=== PATIENT | female | born 1980 | race Caucasian/White ===

== ENCOUNTER → 2021-06-22 16:00 | Outpatient (BNVA) | payer OTHER, SELFPAY | PROVIDERS: Family Provider Nurse Practitioner Family; PCP Registered Nurse; Visit Provider Nurse Practitioner Women's Health | DX: Z12.4 Encounter for screening for malignant neoplasm of cervix (principal); Z30.431 Encounter for routine checking of intrauterine contraceptive device; R10.2 Pelvic and perineal pain | CPT/HCPCS: 88175 ==

== ENCOUNTER → 2021-07-03 13:08 | Outpatient (BNVA) | payer OTHER, SELFPAY | PROVIDERS: Family Provider Nurse Practitioner Family; PCP Registered Nurse; Visit Provider Nurse Practitioner Women's Health | DX: R10.2 Pelvic and perineal pain (principal); N83.201 Unspecified ovarian cyst, right side | CPT/HCPCS: 76830 ==

== ENCOUNTER → 2021-07-06 08:22 | Outpatient (BNVA) | payer OTHER, SELFPAY | PROVIDERS: Family Provider Nurse Practitioner Family; PCP Registered Nurse; Visit Provider Obstetrics & Gynecology | DX: R87.612 Low grade squamous intraepithelial lesion on cytologic smear of cervix (LGSIL) (principal); B97.7 Papillomavirus as the cause of diseases classified elsewhere | CPT/HCPCS: 81025; 88305 ==

== ENCOUNTER → 2022-01-04 14:45 | Outpatient (BNVA) | payer OTHER, SELFPAY | PROVIDERS: Family Provider Nurse Practitioner Family; PCP Registered Nurse; Visit Provider Obstetrics & Gynecology | DX: Z01.419 Encounter for gynecological examination (general) (routine) without abnormal findings (principal) | CPT/HCPCS: 87624 ==

== ENCOUNTER → 2022-06-27 08:25 | Outpatient (BNVA) | payer OTHER, SELFPAY | PROVIDERS: Family Provider Nurse Practitioner Family; PCP Registered Nurse; Visit Provider Obstetrics & Gynecology | DX: R87.612 Low grade squamous intraepithelial lesion on cytologic smear of cervix (LGSIL) (principal); Z12.39 Encounter for other screening for malignant neoplasm of breast | CPT/HCPCS: 87624 ==

== ENCOUNTER 2022-07-08 14:50 | Outpatient (CLI) | payer OTHER, SELFPAY ==
--- NOTE | 2022-07-08 14:55 | MM_ITS ---
WS: [id number] BILATERAL 3D TOMOSYNTHESIS DIGITAL SCREENING MAMMOGRAPHY WITH CAD CLINICAL INFORMATION: Z12.39 - Encounter for other screening for malignant neop... HISTORY: Screening mammogram. No current complaints. COMPARISON: None. TECHNIQUE: Bilateral CC and MLO views. FINDINGS: Scattered fibroglandular densities bilaterally. No suspicious focal mass, asymmetry, calcifications, or architectural distortion. No evidence of malignancy. A few incidental punctate calcifications RIGH T breast. Dense breast tissue upper outer breasts bilaterally. MM/[place] [id number] IMPRESSION: BI-RADS: 2-Benign FOLLOW UP: 1 Year Follow-up Recommend return to annual screening mammography.
== END 2022-07-08 14:51 | disposition home or self-care (01) ==
LOC: RAD 14:50
PROVIDERS: PCP Registered Nurse; Visit Provider Obstetrics & Gynecology
DX: Z12.31 Encounter for screening mammogram for malignant neoplasm of breast (principal)
CPT/HCPCS: 77063; 77067

== ENCOUNTER → 2023-06-30 16:00 | Outpatient (BNVA) | payer OTHER, SELFPAY | PROVIDERS: Family Provider Nurse Practitioner Family; PCP Registered Nurse; Visit Provider Nurse Practitioner Women's Health | DX: Z30.9 Encounter for contraceptive management, unspecified (principal); Z01.419 Encounter for gynecological examination (general) (routine) without abnormal findings | CPT/HCPCS: 87624 ==

== ENCOUNTER → 2023-08-01 15:49 | Outpatient (BNVA) | payer OTHER, SELFPAY | PROVIDERS: Family Provider Nurse Practitioner Family; PCP Family Medicine; Visit Provider Nurse Practitioner Family | DX: N39.0 Urinary tract infection, site not specified (principal); N30.01 Acute cystitis with hematuria | CPT/HCPCS: 81000; 87077; 87086; 87184 ==

== ENCOUNTER → 2023-08-27 13:00 | Outpatient (BNVA) | payer OTHER, SELFPAY | PROVIDERS: Family Provider Nurse Practitioner Family; PCP Family Medicine; Visit Provider Obstetrics & Gynecology | DX: Z30.9 Encounter for contraceptive management, unspecified (principal) | CPT/HCPCS: 81025 ==

== ENCOUNTER 2023-09-15 09:45 | Emergency (ER) | payer OTHER, MEDICAID, SELFPAY ==
[2023-09-15 10:27] VITALS: BP 152/85; PULSE 56; RESP 18; TEMP 36.3; O2SAT 98; BMI 30.1
--- NOTE | 2023-09-15 10:33 | ECG_ITS ---
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 Measurements Intervals Mobile Rate: 61 P: 0 CT: 0 QRS: 68 QRSD: 88 T: 54 QT: 414 QTc: 420 Interpretive Statements Sinus rhythm No previous ECG available for comparison Electronically Signed On 09-15-2023 15:56:08 PLASTERING SUPERVISOR by Nikhil Soliz M.D. [id number]
--- NOTE | 2023-09-15 10:55 | XR_ITS ---
WS: [id number] Exam: XR chest 1V portable [id number] Date/Time of Exam: 09/15/2023 10:55 AM Reason For Exam: chest pain No prior exams. Findings: The lungs are clear and fully expanded. Costophrenic angles are sharp. No infiltrates. Bronchovascula r relief appears normal. Cardiac silhouette is unremarkable. Bony elements are intact. IMPRESSION: Unremarkable chest radiograph.
[2023-09-15 12:09] LABS: Basophils % 0.3 %; Eosinophils % 0.1 %; Hematocrit 43.3 % (36-47); Lymphocytes # 1.3 10^3/uL (0.8-4.8); Lymphocytes % 9.2 %; Mean Corpuscular HGB Conc 33.3 g/dL (30-55); Mean Corpuscular Hemoglobin 30.8 pg (27-33); Mean Corpuscular Volume 92.5 fl (85-98); Mean Platelet Volume 8.4 fL (7.4-10.4); Monocytes # 0.6 10^3/uL (0.2-0.9); Neutrophils # 12.13 10^3/uL (1.8-7.7); Neutrophils % 85.8 %; Nucleated Red Blood Cells % 0 %; Platelet Count 306 10^3/cmm (157-399); Red Blood Count 4.68 10^6/uL (3.85-5.65); Red Cell Distribution Width 12.9 % (12.1-15.1); White Blood Count 14.14 10^3/uL (3.29-11.43)
[2023-09-15 12:37] LABS: Alanine Aminotransferase 10 U/L (0-33); Albumin Level 4.6 g/dL (3.5-5.2); Alkaline Phosphatase 71 U/L (35-105); Anion Gap 11.4 (5-19); Aspartate Amino Transferase 10 U/L (0-32); Blood Urea Nitrogen 11 mg/dL (6-20); Carbon Dioxide 26 mmol/L (22-29); Chloride 104 mmol/L (98-107); Globulin 2.6 g/dL (1.3-4.6); Glomerular Filtration Rate 92.2 mL/min (90-130); Glucose 111 mg/dL (65-115); Osmolality Calculated 284 mOsm/kg (285-295); Potassium 4.4 mmol/L (3.5-5.1); Sodium 137 mmol/L (136-145); Total Bilirubin 0.4 mg/dL (0.15-1.2); Total Protein 7.2 g/dL (6.6-8.7)
[2023-09-15 12:38] LABS: Troponin(5th) Baseline < 6 ng/L (0-10)
--- NOTE | 2023-09-15 12:55 | ECG_ITS ---
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 Measurements Intervals [place] Rate: 61 P: 9 HI: 140 QRS: 3 QRSD: 96 T: 12 QT: 436 QTc: 442 Interpretive Statements SINUS RHYTHM WITH SINUS ARRHYTHMIA Compared to ECG 09/15/2023 10:17:43 Atrial fibrillation no longer present Electronically Signed On 09-15-2023 16:00:06 STUDIO ARTIST by Nikhil Soliz M.D. [id number]
--- NOTE | 2023-09-15 13:14 | US_ITS ---
WS: [id number] ULTRASOUND ABDOMEN LIMITED CLINICAL INFORMATION: ruq COMPARISON: None. FINDINGS: Liver Size: Upper limits of normal. Craniocaudal length: 16.4 cm. Echogenicity: Normal. Surface nodularity: None. Mass (size and location): None. Bile ducts Intrahepatic ducts: Normal. Common bile duct diameter: 0.6 cm. Gallbladder Cholelithiasis and sludge gallstones: Present Gallbladder sludge: Present Gallbladder wall thickening: None. Pericholecystic fluid: None. Sonographic Fierro sign: Absent. Pancreas Normal as visualized. Right kidney: Normal. Hydronephrosis: None. Size: 10.5 cm x 5.7 cm x 5.2 cm. Abdominal aorta and IVC Visualized portions are normal. Ascites: None. IMPRESSION: 1. Shadowing cholelithiasis and gallbladder sludge. No gallbladder wall thickening or pericholecysti c fluid. 2. Prominent common bile duct measuring 6.2 mm. This can be followed up with MRCP. 3. Mild hepatomegaly. 4. No other suspicious findings.
--- NOTE | 2023-09-15 13:19 | ED_ITS ---
HPI - Chest Pain 2 General: Chief Complaint: Chest Pain Stated Complaint: side and back pain Time Seen by Provider: 09/15/23 12:58 Source: patient Mode of arrival: ambulatory Limitations: no limitations History of Present Illness: 43-year-old female states she woke up th is morning having some chest pressure states she has been having epigastric abdominal pain along with right upper quadrant pain states it felt like reflux radiating to her chest states she did take some Tums continue to have some pain has had some nausea no vomiting. Associated symptoms: Reports abdominal pain; Deny dyspnea, fever(s), nausea or vomiting Review of Systems 2 Const: Denies: fever(s), chills, body aches or change in appetite ENMT: Denies: throat pain or dental pain Card: Reports: chest pain Resp: Denies: dyspnea GI: Reports: abdominal pain; Denies: nausea, vomiting or diarrhea : Denies: dysuria Musc: Denies: neck pain or back pain Skin/Breast: Denies: rash Neuro: Denies: headache(s) PFSH ED 2 PFSH: Medical History Contraceptive management No pertinent past medical history neg dx- htn, dm, thyroid, dvt/pe PCP: Chyna vail Surgical History H/O dilation and curettage (~2006) SAB Family History Mother Heart disease Hypertension Family history of thyroid problem Ovarian cancer Grandmother Heart disease Paternal grandmother Ovarian cancer Maternal grandmother Grandfather Diabetes Paternal grandfather Denies family history of Colon cancer Breast cancer Uterine cancer Social History Smoking and tobacco/nicotine status: current every day tobacco/nicotine user (1 PPD) Physical Exam 2 Const: COMMON NORMALS: no acute distress, patient oriented x3 and healthy appearing HENMT: COMMON NORMALS: normocephalic and atraumatic HEAD & SCALP: n ormocephalic and atraumatic Eye: COMMON NORMALS: Equal, round and reactive pupils present and EOMs intact bilaterally PUPIL: Yes Equal, round and reactive pupils present Neck/C-Spine: COMMON NORMALS: full ROM and supple Chest: COMMONS NORMALS: normal inspection of the chest Resp: COMMON NORMALS: normal respiratory effort, No retractions, No use of accessory muscles and clear to auscultation bilaterally AUSCULTATION: clear to auscultation bilaterally Cardio: COMMON NORMALS: regular rate, regular rhythm and No murmurs present (Cardio) RATE: regular rate RHYTHM: regular rhythm GI: COMMON NORMALS: Normal to inspection, nondistended, normoactive bowel sounds present, Soft to palpation and no masses PALPATION: Yes Soft to palpation OTHER: epigastric tenderness Extremity: COMMON NORMALS: normal to inspection and full ROM Neuro: COMMON NORMALS: patient oriented x3, moves all extremities and no focal motor deficits Psych: COMMON NORMALS: mental status grossly normal, Normal thought process present and cooperative THOUGHT PROCESS: Normal thought process present Skin: COMMON NORMALS: no rashes or lesions noted and no wounds GENERAL SKIN EXAM: no rashes or lesions noted Course 2 Vital Signs: Vital signs: Vital Signs Temperature 97.3 F L 09/15/23 10:27 Pulse Rate 58 L 09/15/23 13:31 Respiratory Rate 15 09/15/23 13:48 Blood Pressure 121/70 09/15/23 13:31 Pulse Oximetry 98 09/15/23 13:31 Oxygen Delivery Me thod Room Air 09/15/23 13:31 MDM - Chest Pain Medical Decision Making Patient presents for epigastric abdominal pain ultrasound does show gallstones she has no signs of acute cholecystitis her blood work including lipase liver enzymes are all normal pains improved her exam at discharge benign we will start her on pain meds along with nausea medicine and antibiotics will get her follow- up with surgery as well she is return if worsening she understands agrees to plan. Medical Records I reviewed the patient's medical records. Lab Data I reviewed the patient's lab results. 09/15/23 12:02 09/15/23 12:02 Laboratory Results WBC 14.14 10^3/uL (3.29-11.43) H 09/15/23 12:02 RBC 4.68 10^6/uL (3.85-5.65) 09/15/23 12:02 Hgb 14.40 g/dL (11.27-16.99) 09/15/23 12:02 Hct 43.3 % (36-47) 09/15/23 12:02 MCV 92.5 fl (85-98) 09/15/23 12:02 MCH 30.8 pg (27-33) 09/15/23 12:02 MCHC 33.3 g/dL (30-55) 09/15/23 12:02 RDW 12.9 % (12.1-15.1) 09/15/23 12:02 Plt Count 306 10^3/cmm (157-399) 09/15/23 12:02 MPV 8.4 fL (7.4-10.4) 09/15/23 12:02 Neut % (Auto) 85.8 % 09/15/23 12:02 Lymph % (Auto) 9.2 % 09/15/23 12:02 [place] % (Auto) 4.0 % 09/15/23 12:02 Eos % (Auto) 0.1 % 09/15/23 12:02 Baso % (Auto) 0.3 % 09/15/23 12:02 Neut # (Auto) 12.13 10^3/uL (1.8-7.7) H 09/15/23 12:02 Lymph # (Auto) 1.3 10^3/uL (0.8-4.8) 09/15/23 12:02 [place] # (Auto) 0.6 10^3/uL (0.2-0.9) 09/15/23 12:02 Eos # (Auto) 0.0 10^3/uL (0.0-0.8) 09/15/23 12:02 Baso # (Auto) 0.0 10^3/uL (0.0-0.1) 09/15/23 12:02 Nucleated RBC % (auto) 0 % 09/15/23 12:02 Nucleated RBCs # 0.0 /100WBC 09/15/23 12:02 Sodium 137 mmol/L (136-145) 09/15/23 12:02 Potassium 4.4 mmol/L (3.5-5.1) 09/15/23 12:02 Chloride 104 mmol/L (98-107) 09/15/23 12:02 Carbon Dioxide 26 mmol/L (22-29) 09/15/23 12:02 Anion Gap 11.4 (5-19) 09/15/23 12:02 BUN 11 mg/dL (6-20) 09/15/23 12:02 Creatinine 0.7 mg/dL (0.5-0.9) 09/15/23 12:02 GFR Calculation 92.2 mL/min (90-130) 09/15/23 12:02 Glucose 111 mg/dL (65-115) 09/15/23 12:02 Calculated Osmolality 284 mOsm/kg (285-295) L 09/15/23 12:02 Calcium 10.0 mg/dL (8.5-10.5) 09/15/23 12:02 Total Bilirubin 0.4 mg/dL (0.15-1.2) 09/15/23 12:02 AST 10 U/L (0-32) 09/15/23 12:02 ALT 10 U/L (0-33) 09/15/23 12:02 Alkaline Phosphatase 71 U/L (35-105) 09/15/23 12:02 Troponin T Baseline < 6 ng/L (0-10) 09/15/23 12:02 Troponin T 120 Minute 6.00 ng/L (0-10) 09/15/23 14:20 Delta Troponin T [id number] ABS# (0-10) 09/15/23 14:20 Total Protein 7.2 g/dL (6.6-8.7) 09/15/23 12:02 Albumin 4.6 g/dL (3.5-5.2) 09/15/23 12:02 Globulin 2.6 g/dL (1.3-4.6) 09/15/23 12:02 Lipase 20 U/L (13-60) 09/15/23 14:20 HCG, Qual Negative (Negative) 09/15/23 12:02 All radiology interpretation(s) finalized by discharge EKG Data EKG 1: I personally reviewed and interpreted this EKG as follows: EKG interpretation date: 09/15/23 EKG interpretation time: 14:07 Interpretation: nsr h [address] or t wave abnormalities qrs 96 qtc 440 Discharge Plan Discharge Patient Disposition: Home Clinical Impression: Biliary colic Cholelithiasis Qualifiers: Cholelithiasis location: gallbladder Cholecystitis presence: without cholecystitis Biliary obstruction: without biliary obstruction Qualified Code(s): K80.20 - Calculus of gallbladder without cholecystitis without obstruction Condition: Stable Prescriptions: New hydrocodone-acetaminophen 5-325 mg tablet 1 tab PO Q6H PRN (Reason: pain) Qty: 14 0RF pantoprazole [Protonix] 40 mg tablet,delayed release (DR/EC) 40 mg PO DAILY Qty: 60 0RF ondansetron 4 mg tablet,disintegrating 4 mg PO Q6H PRN (Reason: nausea and vomiting) Qty: 14 0RF amoxicillin-pot clavulanate [Augmentin] 500-125 mg tablet 1 tab PO BID Qty: 14 0RF No Action alprazolam [Xanax] 0.5 mg tablet 0.5 mg PO BID PRN (Reason: Anxiety) propranolol 10 mg tablet 10 mg PO BID PRN (Reason: Anxiety) Mirena 20 mcg/24 hours (5 yrs) 52 mg intrauterine device See Rx Instructions .ROUTE .COMPLEX Rx Instructions: intrauterinely trazodone 100 mg tablet 100 mg PO BEDTIME PRN (Reason: Sleep) Discharge Orders: Discharge ED (Routine); Ordered 09/15/23 Ordered By: Natalia Tay Referrals: Vamsi Hansen DO [Physician] - 1-3 days Reena Vail DO [Primary Care Provider] - Discharge Diet: Advance as tolerated Discharge Activity: Resume usual activity Patient Instructions: Gallstones (ED), Abdominal Pain (ED), Opioid Safety Coding Level of Care Code ED Tribal Delegate for Kody Griffith
[2023-09-15 13:31] VITALS: BP 121/70; PULSE 58; O2SAT 98
[2023-09-15 13:48] VITALS: RESP 15
[2023-09-15] MEDS: ondansetron 2 mg/ML SDV 2 mL 4 MG IVP (13:48)
[2023-09-15] MEDS: morphine 4 mg/mL SDV 1 mL IVP (13:48)
[2023-09-15 14:14] LABS: HCG, Serum Qual Negative (Negative)
[2023-09-15 14:55] LABS: Troponin 5 2HR Delta 0.00001 ABS# (0-10)
[2023-09-15 14:57] LABS: Lipase 20 U/L (13-60)
[2023-09-15 15:28] VITALS: PULSE 74; O2SAT 92
--- NOTE | 2023-09-15 18:06 | DCPLANNER ---
Message was sent to dr. estes office on 09/15/23 at 3134. [facility] to contact patient.
== END 2023-09-15 15:35 | disposition home or self-care (01) ==
PROVIDERS: Physician Assistant; Emergency Provider Emergency Medicine; PCP Family Medicine
DX: K80.20 Calculus of gallbladder without cholecystitis without obstruction (principal); F17.210 Nicotine dependence, cigarettes, uncomplicated
CPT/HCPCS: 36415; 71045; 76705; 80053; 83690; 84484; 84703; 85025; 93005; 96374; 96375; 99285; J2270; J2405

== ENCOUNTER 2023-10-06 14:06 | Emergency (ER) | payer OTHER, MEDICAID, SELFPAY ==
[2023-10-06 14:22] VITALS: BP 141/88; PULSE 57; RESP 18; TEMP 36.5; O2SAT 100; BMI 31.6
[2023-10-06 15:22] LABS: Basophils % 0.2 %; Eosinophils % 0.1 %; Hematocrit 44.1 % (36-47); Lymphocytes # 1.4 10^3/uL (0.8-4.8); Lymphocytes % 10.7 %; Mean Corpuscular HGB Conc 32.4 g/dL (30-55); Mean Corpuscular Hemoglobin 30.3 pg (27-33); Mean Corpuscular Volume 93.4 fl (85-98); Mean Platelet Volume 8.7 fL (7.4-10.4); Monocytes # 0.5 10^3/uL (0.2-0.9); Monocytes % 3.8 %; Neutrophils # 11.34 10^3/uL (1.8-7.7); Neutrophils % 84.9 %; Nucleated Red Blood Cells % 0 %; Platelet Count 312 10^3/cmm (157-399); Red Blood Count 4.72 10^6/uL (3.85-5.65); White Blood Count 13.37 10^3/uL (3.29-11.43)
[2023-10-06] MEDS: ondansetron 2 mg/ML SDV 2 mL 4 MG IVP (15:24)
[2023-10-06] MEDS: morphine 4 mg/mL SDV 1 mL IVP (15:25)
--- NOTE | 2023-10-06 15:34 | USR_ITS ---
PROCEDURE INFORMATION: Exam: US Abdomen, Limited; Right Upper Quadrant Exam date and time: 10/06/2023 3:50 PM Age: 43 years old Clinical indication: Abdominal pain; Acute; Additional info: Ruq pain, nausea, HX of stones/sludge TECHNIQUE: Imaging protocol: Real time ultrasound of the abdomen with image documentation. Limited exam focused on the right upper quadrant. COMPARISON: US gall bladder [id number] 09/15/2023 1:22 PM FINDINGS: Liver: Normal. No masses. Gallbladder: Mobile bile gallstones are seen long with some sludge. No wall thickening or edema. Fierro's sign reported negative. Biliary ducts: Normal. No stones. No dilation. Pancreas: Visualized pancreas is unremarkable. Right kidney: Normal. No mass. No hydronephrosis. Aorta: Normal where visualized. Inferior vena cava: Normal where visualized. US/US gall bladder [id number] IMPRESSION: Cholelithiasis with no sonographic evidence for acute cholecystitis.
--- NOTE | 2023-10-06 15:34 | ED_ITS ---
HPI - Abdominal Pain 2 General: Chief Complaint: Abdominal Pain Stated Complaint: abd pain Time Seen by Provider: 10/06/23 14:52 History of Present Illness: 43-year-old female presents emergency de partment with complaint of epigastric abdominal pain with nausea and heartburn with reflux. She reports it started as she was waking up this morning. It was already present by the time she got out of bed. She has a history of cholelithiasis and biliary sludge and has a scheduled cholecystectomy in November 2023. Patient reports she also is taking a proton pump inhibitor as the cause for her epigastric abdominal pain was unclear at the time of previous ER visit for epigastric abdominal pain. Patient reports she did have a few fatty foods yesterday for s [employer]. She denies using alcohol. Pain rated as severe upon arrival. It does radiate into her back. She took a hydrocodone 10 mg tablet which did not alleviate her pain. At that point in time she decided to come into the ER for evaluation. Associated Symptoms: Denies chills, diarrhea, dysuria, fever(s) and syncope Review of Systems 2 General: Reports: 10 or more systems reviewed and unremarkable except in HPI and below Const: Denies: fever(s), chills or body aches Eyes: Denies: change in vision ENMT: Denies: throat pain Card: Denies: chest pain, edema or syncope Resp: Denies: dyspnea or productive cough GI: Denies: diarrhea : Denies: flank pain, dysuria or urinary frequency Musc: Denies: neck pain, extremity pain or extremity swelling Skin/Breast: Denies: rash or erythema Neuro: Denies: headache(s), numbness in extremities, weakness in extremities, lack of coordination or difficulty walking PFSH ED 2 PFSH: Medical History No pertinent past medical history neg dx- htn, dm, thyroid, dvt/pe PCP: Chyna vail Contraceptive management Surgical History H/O dilation and curettage (~2006) SAB Family History Mother Heart disease Hypertension Family history of thyroid problem Ovarian cancer Grandmother Heart disease Paternal grandmother Ovarian cancer Maternal grandmother Grandfather Diabetes Paternal grandfather Denies family history of Colon cancer Breast cancer Uterine cancer Social History Smoking and tobacco/nicotine status: current every day tobacco/nicotine user (1 PPD) Physical Exam 2 Const: COMMON NORMALS: no limitations, alert and well nourished EXAM LIMITATIONS: no altered mental status HENMT: COMMON NORMALS: normocephalic, atraumatic and external ears normal H EAD & SCALP: normocephalic and atraumatic EXTERNAL EAR: Yes external ears normal MOUTH: no muffled voice Eye: COMMON NORMALS: EOMs intact bilaterally, conjunctivae normal and no scleral icterus CONJUNCTIVA: Yes conjunctivae normal Neck/C-Spine: GENERAL: Yes normal visual inspection and Yes trachea midline Resp: COMMON NORMALS: normal respiratory effort, No use of accessory muscles and clear to auscultation bilaterally AUSCULTATION: clear to auscultation bilaterally Cardio: COMMON NORMALS: regular rate and regular rhythm RATE: regular rate RHYTHM: regular rhythm GI: COMMON NORMALS: Soft to palpation INSPECTION: Yes normal to inspection PALPATION: Yes Soft to palpation, Yes Tenderness to palpation present (GI) Details: RUQ and Yes Guarding due to palpation present (GI) in the RUQ Extremity: COMMON NORMALS: normal to inspection Neuro: COMMON NORMALS: moves all extremities, no focal motor deficits and no sensory deficits noted SENSORIUM/ORIENTATION: Yes alert SPEECH: speech normal Psych: COMMON NORMALS: mental status grossly normal, Normal thought process present, cooperative, normal affect and speech normal SPEECH: Yes normal speech THOUGHT PROCESS: Normal thought process present Skin: COMMON NORMALS: no rashes or lesions noted, turgor normal and no jaundice GENERAL SKIN EXAM: no rashes or lesions noted and turgor normal Course 2 Vital Signs: Vital signs: Vital Signs Temperature 97.7 F 10/06/23 14:22 Pulse Rate 57 L 10/06/23 14:22 Respiratory Rate 18 10/06/23 14:22 Blood Pressure 141/88 10/06/23 14:22 Pulse Oximetry 100 10/06/23 14:22 Oxygen Delivery Me thod Room Air 10/06/23 14:22 MDM - Abdominal Pain Medical Decision Making Differential diagnosis includes biliary colic, cholecystitis, pancreatitis, hepatitis, gastritis, peptic ulcer disease, obstipation, constipation, GERD, colitis, diverticulitis, other. Point of maximal tenderness is in the right upper quadrant underneath the rib cage. Will proceed with CBC, CMP, lipase, right upper quadrant ultrasound. Patient was given Zofran, morphine with significant improvement. Will add Toradol for suspected biliary colic. Urine test is negative. 1415 Patient's white blood cell count is elevated. LFTs are normal. Lipase is normal. test is negative. radiographic technologist discussed her findings with me. The official read is pending. Her wet read suggest mobile gallstones and sludge. No gallbladder wall thickness or pericholecystic fluid. The common bile duct is measuring 1 cm. This is up from 6.2 on her previous study. However, technologist reports unable to see any signs of obstruction after moving the patient and observing the common bile duct. I discussed this case with Dr. Culver. The patient's discomfort has resolved and there are no abnormal LFTs, therefore our plan is to discharge the patient with urgent follow-up to his clinic this week. He would like to place her on Augmentin. I will reiterate very low-fat diet and return precautions. He reports he plans to repeat labs and probable MRCP at follow-up. Lab Data 10/06/23 15:03 10/06/23 15:03 Labs/Radiology: Radiology Impressions Gallbladder Ultrasound 10/06/23 15:34 IMPRESSION: Cholelithiasis with no sonographic evidence for acute cholecystitis. Laboratory Results WBC 13.37 10^3/uL (3.29-11.43) H 10/06/23 15:03 RBC 4.72 10^6/uL (3.85-5.65) 10/06/23 15:03 Hgb 14.30 g/dL (11.27-16.99) 10/06/23 15:03 Hct 44.1 % (36-47) 10/06/23 15:03 MCV 93.4 fl (85-98) 10/06/23 15:03 MCH 30.3 pg (27-33) 10/06/23 15:03 MCHC 32.4 g/dL (30-55) 10/06/23 15:03 RDW 13.0 % (12.1-15.1) 10/06/23 15:03 Plt Count 312 10^3/cmm (157-399) 10/06/23 15:03 MPV 8.7 fL (7.4-10.4) 10/06/23 15:03 Neut % (Auto) 84.9 % 10/06/23 15:03 Lymph % (Auto) 10.7 % 10/06/23 15:03 [place] % (Auto) 3.8 % 10/06/23 15:03 Eos % (Auto) 0.1 % 10/06/23 15:03 Baso % (Auto) 0.2 % 10/06/23 15:03 Neut # (Auto) 11.34 10^3/uL (1.8-7.7) H 10/06/23 15:03 Lymph # (Auto) 1.4 10^3/uL (0.8-4.8) 10/06/23 15:03 [place] # (Auto) 0.5 10^3/uL (0.2-0.9) 10/06/23 15:03 Eos # (Auto) 0.0 10^3/uL (0.0-0.8) 10/06/23 15:03 Baso # (Auto) 0.0 10^3/uL (0.0-0.1) 10/06/23 15:03 Nucleated RBC % (auto) 0 % 10/06/23 15:03 Nucleated RBCs # 0.0 /100WBC 10/06/23 15:03 Sodium 140 mmol/L (136-145) 10/06/23 15:03 Potassium 4.2 mmol/L (3.5-5.1) 10/06/23 15:03 Chloride 108 mmol/L (98-107) H 10/06/23 15:03 Carbon Dioxide 24 mmol/L (22-29) 10/06/23 15:03 Anion Gap 12.2 (5-19) 10/06/23 15:03 BUN 10 mg/dL (6-20) 10/06/23 15:03 Creatinine 0.8 mg/dL (0.5-0.9) 10/06/23 15:03 GFR Calculation 79.0 mL/min (90-130) L 10/06/23 15:03 Glucose 108 mg/dL (65-115) 10/06/23 15:03 Calculated Osmolality 290 mOsm/kg (285-295) 10/06/23 15:03 Calcium 9.5 mg/dL (8.5-10.5) 10/06/23 15:03 Total Bilirubin 0.2 mg/dL (0.15-1.2) 10/06/23 15:03 AST 12 U/L (0-32) 10/06/23 15:03 ALT 12 U/L (0-33) 10/06/23 15:03 Alkaline Phosphatase 70 U/L (35-105) 10/06/23 15:03 Total Protein 6.9 g/dL (6.6-8.7) 10/06/23 15:03 Albumin 4.3 g/dL (3.5-5.2) 10/06/23 15:03 Globulin 2.6 g/dL (1.3-4.6) 10/06/23 15:03 Lipase 17 U/L (13-60) 10/06/23 15:03 HCG, Qual Negative (Negative) 10/06/23 16:08 Urine Color Yellow (Yellow) 10/06/23 16:08 Urine Appearance Clear (CLEAR) 10/06/23 16:08 Urine pH 5 (5-7) 10/06/23 16:08 Ur Specific [place] 1.025 (1.005-1.030) 10/06/23 16:08 Urine Protein Neg (Negative) 10/06/23 16:08 Urine Glucose (UA) Norm (Normal) 10/06/23 16:08 Urine Ketones 1+ (Negative) H 10/06/23 16:08 Urine Blood Trace (Negative) H 10/06/23 16:08 Urine Nitrate Negative (Negative) 10/06/23 16:08 Urine Bilirubin Neg (Negative) 10/06/23 16:08 Urine Urobilinogen Norm mg/dL (Negative) 10/06/23 16:08 Ur Leukocyte Esterase Negative (Negative) 10/06/23 16:08 Urine RBC Rare /hpf (0-2) 10/06/23 16:08 Urine WBC 0-4 /hpf (0-5) H 10/06/23 16:08 Ur Squamous Epith Cells 5-10 /hpf (0-5) H 10/06/23 16:08 Amorphous Sediment Not Reportable 10/06/23 16:08 Urine Bacteria 2+ /hpf (NONE) H 10/06/23 16:08 Urine Opiates Screen Positive ng/mL (Negative) H 10/06/23 16:08 Ur Barbiturates Screen Negative ng/mL (Negative) 10/06/23 16:08 Ur Phencyclidine Scrn Negative ng/mL (Negative) 10/06/23 16:08 Ur Amphetamines Screen Negative ng/mL (Negative) 10/06/23 16:08 U Benzodiazepines Scrn Positive ng/mL (Negative) H 10/06/23 16:08 Urine Cocaine Screen Negative ng/mL (Negative) 10/06/23 16:08 U Marijuana (THC) Screen Positive ng/mL (Negative) H 10/06/23 16:08 All radiology interpretation(s) finalized by discharge Discharge Plan Discharge Patient Disposition: Home Clinical Impression: Biliary colic, Common bile duct dilatation Cholelithiasis Qualifiers: Cholelithiasis location: gallbladder Cholecystitis presence: without cholecystitis Condition: Stable Prescriptions: New Diflucan 100 mg tablet 100 mg PO DAILY 10 Days Qty: 10 0RF ondansetron HCl 4 mg tablet 4 mg PO Q8H PRN (Reason: nausea and vomiting) 5 Days Qty: 10 0RF Augmentin 500-125 mg tablet 1 tab PO BID 5 Days Qty: 10 0RF Discontinued Augmentin 500-125 mg tablet 1 tab PO BID Qty: 8 0RF fluconazole 150 mg tablet 150 mg PO DAILY Qty: 1 0RF ondansetron 4 mg tablet,disintegrating 4 mg PO Q6H PRN (Reason: nausea and vomiting) Qty: 14 0RF No Action alprazolam [Xanax] 0.5 mg tablet 0.5 mg PO BID PRN (Reason: Anxiety) propranolol 10 mg tablet 10 mg PO BID PRN (Reason: Anxiety) Mirena 20 mcg/24 hours (5 yrs) 52 mg intrauterine device See Rx Instructions .ROUTE .COMPLEX Rx Instructions: intrauterinely meloxicam 7.5 mg tablet 7.5 mg PO DAILY 5 Days Qty: 5 0RF trazodone 100 mg tablet 100 mg PO BEDTIME PRN (Reason: Sleep) hydrocodone-acetaminophen 5-325 mg tablet 1 tab PO Q6H PRN (Reason: pain) Qty: 14 0RF Protonix 40 mg tablet,delayed release (DR/EC) 40 mg PO DAILY Qty: 60 0RF Discharge Orders: Discharge ED (Routine); Ordered 10/06/23 Ordered By: Darell Robbins Referrals: Sanchez Almeida MD [Physician] - 1-3 days Reena Vail DO [Primary Care Provider] - Discharge Diet: Low Fat Discharge Activity: Increase activity as tolerated Patient Instructions: Biliary Colic (ED), MRCP (Magnetic Resonance Cholangiopancreatography) (DC), Opioid Safety, Pain Management Activity Restrictions/Additional Instructions: You have gallstones and sludge. Your white blood cell count is elevated. Your common bile duct is slightly dilated at approximately 1 cm. You do not have signs of gallbladder inflammation today on ultrasound. Your liver function tests were normal. Sometimes when people have a dilated common bile duct, and they may have an occult (or difficult to see) obstruction or partial obstruction of that duct. Eat a 0 fat diet for the first 24 hours. After that you may eat a very low-fat diet. Dr. Cantrell would like to see you this week. Please call tomorrow morning and tell them you need a work in appointment as an ER follow-up that Dr. Cantrell has approved. He is likely going to repeat your labs and get an MRCP. Return to the emergency department if you have return of your abdominal pain, vomiting, fever, your skin is turning yellowish or your eyes are turning yellowish, pale stools, or other worsening symptoms. Coding Level of Care Code ED [employer] for Kody Griffith
[2023-10-06 15:38] LABS: Alanine Aminotransferase 12 U/L (0-33); Albumin Level 4.3 g/dL (3.5-5.2); Alkaline Phosphatase 70 U/L (35-105); Anion Gap 12.2 (5-19); Aspartate Amino Transferase 12 U/L (0-32); Blood Urea Nitrogen 10 mg/dL (6-20); Calcium 9.5 mg/dL (8.5-10.5); Carbon Dioxide 24 mmol/L (22-29); Chloride 108 mmol/L (98-107); Globulin 2.6 g/dL (1.3-4.6); Glucose 108 mg/dL (65-115); Lipase 17 U/L (13-60); Osmolality Calculated 290 mOsm/kg (285-295); Potassium 4.2 mmol/L (3.5-5.1); Sodium 140 mmol/L (136-145); Total Bilirubin 0.2 mg/dL (0.15-1.2); Total Protein 6.9 g/dL (6.6-8.7)
[2023-10-06] MEDS: ketorolac 30 mg/mL INJ 15 MG IVP (16:03)
[2023-10-06 16:16] LABS: HCG Qualitative Urine. Negative (Negative)
[2023-10-06 16:19] LABS: Amphetamines Screen Urine Negative (Negative); Barbiturates Screen Urine Negative (Negative); Benzodiazepines Screen Urine Positive (Negative); Cocaine Screen Urine Negative (Negative); Opiate Screen Urine Positive (Negative); PCP Screen Urine Negative (Negative); THC Screen Urine Positive (Negative)
[2023-10-06 16:23] LABS: Add Urine Microscopic? YES; Bilirubin Urine Neg (Negative); Blood Urine Trace (Negative); Glucose Urine UA Norm (Normal); Ketones Urine 1+ (Negative); Leukocyte Esterase Urine Negative (Negative); Nitrate Urine Negative (Negative); Protein Urine Neg (Negative); RBC Urine RARE /hpf (0-2); Specific Gravity, Urine 1.025 (1.005-1.030); Urine Appearance Clear (CLEAR); Urine Color Yellow (Yellow); Urobilinogen Urine Norm (Negative); WBC Urine 0-4 /hpf (0-5); pH Urine 5 (5-7)
[2023-10-06 16:24] LABS: Add Urine Culture? No; Bacteria Urine 2+ /hpf
== END 2023-10-06 17:33 | disposition home or self-care (01) ==
PROVIDERS: Emergency Provider Emergency Medicine; PCP Family Medicine
DX: K80.20 Calculus of gallbladder without cholecystitis without obstruction (principal); K83.8 Other specified diseases of biliary tract; Z72.0 Tobacco use
CPT/HCPCS: 76705; 80053; 80306; 81001; 81025; 83690; 85025; 96374; 96375; 99284; J1885; J2270; J2405

== ENCOUNTER 2023-10-19 10:34 | Observation (INO) | payer OTHER, SELFPAY ==
[2023-10-19] VITALS (10 sets, daily range): BP systolic 101–151; BP diastolic 61–85; PULSE 55–61; RESP 16–31; TEMP 36.7–36.9; O2SAT 97–100; BMI 29.6
--- NOTE | 2023-10-19 10:40 | ED_ITS ---
HPI - Abdominal Pain General: Stated Complaint: abd pain Time Seen by Provider: 10/19/23 10:38 History of Present Illness: Associated Symptoms: Denies chills, dysuria and fever(s) Review of Systems Const: Denies: fever(s) or chills Card: Denies: chest pain Resp: Denies: dyspnea GI: Denies: abdominal pain : Denies: dysuria, urinary frequency or urinary urgency Musc: Denies: neck pain or back pain Skin/Breast: Denies: rash PFSH ED PFSH: Medical History No pertinent past medical history neg dx- htn, dm, thyroid, dvt/pe PCP: Chyna vail Contraceptive management Surgical History H/O dilation and curettage (~2006) SAB Family History Mother Heart disease Hypertension Family history of thyroid problem Ovarian cancer Grandmother Heart disease Paternal grandmother Ovarian cancer Maternal grandmother Grandfather Diabetes Paternal grandfather Denies family history of Colon cancer Breast cancer Uterine cancer Social History Smoking and tobacco/nicotine status: current every day tobacco/nicotine user (1 PPD) Physical Exam Const: COMMON NORMALS: no acute distress GENERAL APPEARANCE: cooperative and comfortable ORIENTATION/CONSCIOUSNESS: Yes awake, Yes oriented to person, Yes oriented to place and Yes oriented to time HENMT: COMMON NORMALS: normocephalic, atraumatic and hearing grossly normal bilaterally HEAD & SCALP: normocephalic and atraumatic Resp: COMMON NORMALS: normal respiratory effort, No retractions, No use of accessory muscles and clear to auscultation bilaterally AUSCULTATION: clear to auscultation bilaterally Cardio: COMMON NORMALS: regular rate, regular rhythm and No murmurs present (Cardio) RATE: regular rate RHYTHM: regular rhythm GI: COMMON NORMALS: Soft to palpation and No hepatosplenomegaly present AUSCULTATION: Yes normoactive bowel sounds PALPATION: Yes Soft to palpation, No Tenderness to palpation present (GI), No Guarding due to palpation present (GI) and Yes No hepatosplenomegaly present Extremity: COMMON NORMALS: normal to inspection, capillary refill normal, no clubbing, cyanosis or edema, no calf tenderness and no pedal edema Neuro: SENSORIUM/ORIENTATION: Yes oriented to person, Yes oriented to place and Yes oriented to time Skin: COMMON NORMALS: no rashes or lesions noted GENERAL SKIN EXAM: no rashes or lesions noted Discharge Plan Discharge Condition: Stable Prescriptions: No Action alprazolam [Xanax] 0.5 mg tablet 0.5 mg PO BID PRN (Reason: Anxiety) propranolol 10 mg tablet 10 mg PO BID PRN (Reason: Anxiety) Mirena 20 mcg/24 hours (5 yrs) 52 mg intrauterine device See Rx Instructions .ROUTE .COMPLEX Rx Instructions: intrauterinely meloxicam 7.5 mg tablet 7.5 mg PO DAILY 5 Days Qty: 5 0RF hydrocodone-acetaminophen 10-325 mg/15 mL(15 mL) solution 15 ml PO Q12H PRN trazodone 100 mg tablet 100 mg PO BEDTIME PRN (Reason: Sleep) hydrocodone-acetaminophen 5-325 mg tablet 1 tab PO Q6H PRN (Reason: pain) Qty: 14 0RF Protonix 40 mg tablet,delayed release (DR/EC) 40 mg PO DAILY Qty: 60 0RF Referrals: Reena Vail DO [Primary Care Provider] - Coding Level of Care Code ED Advertising Agency Manager for Kody Griffith
--- NOTE | 2023-10-19 10:45 | ED_ITS ---
HPI - Abdominal Pain 2 General: Chief Complaint: Abdominal Pain Stated Complaint: abd pain Time Seen by Provider: 10/19/23 10:38 History of Present Illness: 43-year-old female presents to the emerg ency department with complaints of right upper quadrant abdominal pain that is a 10 out of 10 and constant. She states that she has been evaluated previously and is scheduled to have her gallbladder removed at the end of November but over the last 3 days has had multiple gallbladder attacks throughout the day causing her significant pain with nausea and vomiting. She does present this morning in acute pain that is constant. She states she has had 2 ultrasounds and does not want a third. She states that she feels that her condition will be much improved if she had her gallbladder removed as she was advised. She states she is unable to keep any food down because approximately 20 to 30 minutes after eating she starts having severe right upper quadrant abdominal pain feels nauseated and vomits. She denies fevers chills or night sweats. Associated Symptoms: Reports nausea and vomiting Review of Systems 2 General: Reports: 10 or more systems reviewed and unremarkable except in HPI and below GI: Reports: abdominal pain, nausea and vomiting PFSH ED 2 PFSH: Medical History No pertinent past medical history neg dx- htn, dm, thyroid, dvt/pe PCP: Chyna vail Contraceptive management Surgical History H/O dilation and curettage (~2006) SAB Family History Mother Heart disease Hypertension Family history of thyroid problem Ovarian cancer Grandmother Heart disease Paternal grandmother Ovarian cancer Maternal grandmother Grandfather Diabetes Paternal grandfather Denies family history of Colon cancer Breast cancer Uterine cancer Social History Smoking and tobacco/nicotine status: current every day tobacco/nicotine user (1 PPD) Physical Exam 2 Narrative: EXAM NARRATIVE: Constitutional: the patient appears well nourished and of normal development. Vital signs as documented. Obvious acute pain at present. Alert and oriented- to person, place, time and situation. Head, eyes, ears, nose, mouth, throat: Normocephalic, atraumatic. Pupils-equal, round, reactive to light. No scleral icterus. Normal-appearing external ears. Normal appearing nasal turbinates, no drainage. No obvious oral lesions, posterior oropharynx without erythema or exudates. Neck: Supple, trachea is midline, no lymphadenopathy, no jugular venous distension, thyromegaly, or carotid bruits. Carotid upstrokes are brisk bilaterally. Lungs: clear to auscultation to all lung lopez. Symmetrical rise and fall of chest, no obvious signs of increased work of breathing at present. Cardiac: Regular rate and rhythm, positive S1, S2. No murmurs, rubs or gallops that I can appreciate Abdomen: Soft, tender to palpation to the right upper quadrant, positive Fierro sign, normal active bowel sounds to all quadrants. No palpable masses, no organomegaly and abdominal bruits. Extremities: 2+ pulses in the upper extremities that are equal bilaterally, 2+ pulses in the lower extremities that are equal bilaterally. Non-edematous. Moves all extremities well, sensation to all extremities are noted. Skin: Warm, dry, intact. Course 2 Vital Signs: Vital signs: Vital Signs Temperature 98.5 F 10/19/23 10:38 Pulse Rate 55 L 10/19/23 10:59 Respiratory Rate 24 H 10/19/23 11:04 Blood Pressure 140/61 10/19/23 10:59 Pulse Oximetry 100 10/19/23 11:04 Oxygen Delivery Me thod Room Air 10/19/23 10:59 MDM - Abdominal Pain Medical Decision Making 43-year-old female presents with right upper quadrant abdominal pain has history of being diagnosed with cholelithiasis and is scheduled to have a cholecystectomy at the end of November. The patient states she has seen the general surgeon Dr. Hansen and had a follow-up with Dr. Garcia. I will obtain laboratory evaluation and contact Dr. Hansen who is the on-call surgeon today and request admission of the patient for her intractable right upper quadrant abdominal pain and for planned cholecystectomy. Medical Records I reviewed the patient's medical records. Lab Data I reviewed the patient's lab results. 10/19/23 10:50 10/19/23 10:50 Labs/Radiology: Laboratory Results WBC 11.05 10^3/uL (3.29-11.43) 10/19/23 10:50 RBC 4.69 10^6/uL (3.85-5.65) 10/19/23 10:50 Hgb 14.30 g/dL (11.27-16.99) 10/19/23 10:50 Hct 43.3 % (36-47) 10/19/23 10:50 MCV 92.3 fl (85-98) 10/19/23 10:50 MCH 30.5 pg (27-33) 10/19/23 10:50 MCHC 33.0 g/dL (30-55) 10/19/23 10:50 RDW 12.8 % (12.1-15.1) 10/19/23 10:50 Plt Count 288 10^3/cmm (157-399) 10/19/23 10:50 MPV 8.8 fL (7.4-10.4) 10/19/23 10:50 Neut % (Auto) 81.1 % 10/19/23 10:50 Lymph % (Auto) 8.2 % 10/19/23 10:50 [place] % (Auto) 9.8 % 10/19/23 10:50 Eos % (Auto) 0.2 % 10/19/23 10:50 Baso % (Auto) 0.3 % 10/19/23 10:50 Neut # (Auto) 8.97 10^3/uL (1.8-7.7) H 10/19/23 10:50 Lymph # (Auto) 0.9 10^3/uL (0.8-4.8) 10/19/23 10:50 [place] # (Auto) 1.1 10^3/uL (0.2-0.9) H 10/19/23 10:50 Eos # (Auto) 0.0 10^3/uL (0.0-0.8) 10/19/23 10:50 Baso # (Auto) 0.0 10^3/uL (0.0-0.1) 10/19/23 10:50 Nucleated RBC % (auto) 0 % 10/19/23 10:50 Nucleated RBCs # 0.0 /100WBC 10/19/23 10:50 Sodium 137 mmol/L (136-145) 10/19/23 10:50 Potassium 4.7 mmol/L (3.5-5.1) 10/19/23 10:50 Chloride 102 mmol/L (98-107) 10/19/23 10:50 Carbon Dioxide 23 mmol/L (22-29) 10/19/23 10:50 Anion Gap 16.7 (5-19) 10/19/23 10:50 BUN 13 mg/dL (6-20) 10/19/23 10:50 Creatinine 0.8 mg/dL (0.5-0.9) 10/19/23 10:50 GFR Calculation 79.0 mL/min (90-130) L 10/19/23 10:50 Glucose 112 mg/dL (65-115) 10/19/23 10:50 Calculated Osmolality 285 mOsm/kg (285-295) 10/19/23 10:50 Calcium 10.1 mg/dL (8.5-10.5) 10/19/23 10:50 Total Bilirubin 0.2 mg/dL (0.15-1.2) 10/19/23 10:50 AST 10 U/L (0-32) 10/19/23 10:50 ALT 9 U/L (0-33) 10/19/23 10:50 Alkaline Phosphatase 65 U/L (35-105) 10/19/23 10:50 Total Protein 7.1 g/dL (6.6-8.7) 10/19/23 10:50 Albumin 4.5 g/dL (3.5-5.2) 10/19/23 10:50 Globulin 2.6 g/dL (1.3-4.6) 10/19/23 10:50 Lipase 27 U/L (13-60) 10/19/23 10:50 HCG, Qual Negative (Negative) 10/19/23 10:50 Urine Color Yellow (Yellow) 10/19/23 10:58 Urine Appearance Clear (CLEAR) 10/19/23 10:58 Urine pH 5 (5-7) 10/19/23 10:58 Ur Specific [place] 1.030 (1.005-1.030) 10/19/23 10:58 Urine Protein Neg (Negative) 10/19/23 10:58 Urine Glucose (UA) Norm (Normal) 10/19/23 10:58 Urine Ketones 1+ (Negative) H 10/19/23 10:58 Urine Blood Neg (Negative) 10/19/23 10:58 Urine Nitrate Negative (Negative) 10/19/23 10:58 Urine Bilirubin Neg (Negative) 10/19/23 10:58 Urine Urobilinogen Norm mg/dL (Negative) 10/19/23 10:58 Ur Leukocyte Esterase Negative (Negative) 10/19/23 10:58 No radiology studies performed this visit Discharge Plan Discharge Patient Disposition: Admitted As Inpatient Clinical Impression: Intractable abdominal pain Cholelithiasis Qualifiers: Cholelithiasis location: gallbladder Cholecystitis presence: without cholecystitis Biliary obstruction: without biliary obstruction Qualified Code(s): K80.20 - Calculus of gallbladder without cholecystitis without obstruction Nausea & vomiting Qualifiers: Vomiting type: unspecified Qualified Code(s): R11.2 - Nausea with vomiting, unspecified Condition: Stable Coding Level of Care Code ED Dental Nurse for Kody Griffith
[2023-10-19] MEDS: ondansetron 2 mg/ML SDV 2 mL 4 MG IVP (11:00)
[2023-10-19 11:01] LABS: Add Urine Microscopic? NO; Charge for UA Resulting for Rev
[2023-10-19 11:03] LABS: Basophils % 0.3 %; Eosinophils % 0.2 %; Hematocrit 43.3 % (36-47); Lymphocytes # 0.9 10^3/uL (0.8-4.8); Lymphocytes % 8.2 %; Mean Corpuscular Hemoglobin 30.5 pg (27-33); Mean Corpuscular Volume 92.3 fl (85-98); Mean Platelet Volume 8.8 fL (7.4-10.4); Monocytes # 1.1 10^3/uL (0.2-0.9); Monocytes % 9.8 %; Neutrophils # 8.97 10^3/uL (1.8-7.7); Neutrophils % 81.1 %; Nucleated Red Blood Cells % 0 %; Platelet Count 288 10^3/cmm (157-399); Red Blood Count 4.69 10^6/uL (3.85-5.65); Red Cell Distribution Width 12.8 % (12.1-15.1); White Blood Count 11.05 10^3/uL (3.29-11.43)
[2023-10-19 11:03] LABS: Bilirubin Urine Neg (Negative); Blood Urine Neg (Negative); Glucose Urine UA Norm (Normal); Ketones Urine 1+ (Negative); Leukocyte Esterase Urine Negative (Negative); Nitrate Urine Negative (Negative); Protein Urine Neg (Negative); Urine Appearance Clear (CLEAR); Urine Color Yellow (Yellow); Urobilinogen Urine Norm (Negative); pH Urine 5 (5-7)
[2023-10-19] MEDS: morphine 4 mg/mL SDV 1 mL IVP ×2 (11:04→15:27)
[2023-10-19 11:14] LABS: Alanine Aminotransferase 9 U/L (0-33); Albumin Level 4.5 g/dL (3.5-5.2); Alkaline Phosphatase 65 U/L (35-105); Anion Gap 16.7 (5-19); Aspartate Amino Transferase 10 U/L (0-32); Blood Urea Nitrogen 13 mg/dL (6-20); Calcium 10.1 mg/dL (8.5-10.5); Carbon Dioxide 23 mmol/L (22-29); Chloride 102 mmol/L (98-107); Globulin 2.6 g/dL (1.3-4.6); Glucose 112 mg/dL (65-115); Lipase 27 U/L (13-60); Osmolality Calculated 285 mOsm/kg (285-295); Potassium 4.7 mmol/L (3.5-5.1); Sodium 137 mmol/L (136-145); Total Bilirubin 0.2 mg/dL (0.15-1.2); Total Protein 7.1 g/dL (6.6-8.7)
[2023-10-19 11:19] LABS: HCG, Serum Qual Negative (Negative)
[2023-10-19] MEDS: fentaNYL 50 mcg/mL INJ 2mL IVP (11:48)
[2023-10-19] MEDS: lactated ringers 1,000 ML 100 ML IV ×2 (12:02→22:31)
--- NOTE | 2023-10-19 17:06 | P.HP_ITS ---
Providers/Chief Complaint 2 Admitting Physician: Vamsi Hansen DO Primary Care Provider: Reena Vail DO Chief Complaint: abd pain History of Present Illness Laurie Byrd is a 43 year old female scheduled to have a laparoscopic cholecystectomy in the near future for biliary colic and symptomatic cholelithiasis. However she woke up in the [facility] with severe right upper quadrant abdominal pain radiating to her back along with nausea. In the ER she has intractable pain. Eating makes her pain worse. Nothing makes pain better. She denies any emesis, hematemesis, hematochezia and/or melena. Denies any fever or chills. Review of Systems 2 General: Reports: 10 or more systems reviewed and unremarkable except in HPI and below Medications/Allergies Home Medications Medication Instructions Recorded Confirmed Last Taken Type levonorgestrel 21 mcg/24 hours (8 See Rx Instructions .Route .COMPLEX 03/16/20 10/19/23 Unknown History yrs) 52 mg intrauterine device (Mirena) alprazolam 0.5 mg tablet (Xanax) 0.5 mg PO BID PRN Anxiety 06/22/21 10/19/23 Unknown History propranolol 10 mg tablet 10 mg PO BID PRN Anxiety 06/27/22 10/19/23 10/18/23 History hydrocodone 5 mg-acetaminophen 325 1 tab PO Q6H PRN pain #14 tabs 09/15/23 10/19/23 10/19/23 Rx mg tablet pantoprazole 40 mg tablet,delayed 40 mg PO DAILY #60 tabs 09/15/23 10/19/23 10/18/23 Rx release (Protonix) trazodone 100 mg tablet 100 mg PO BEDTIME PRN Sleep 09/15/23 10/19/23 Unknown History ondansetron HCl 4 mg tablet 4 mg PO Q8H PRN Nausea And Vomiting 10/19/23 10/19/23 10/19/23 History Allergies Allergy/AdvReac Type Severity Reaction Status Date / Time azithromycin [From Zithromax] Allergy Mild unknown Verified 10/19/23 11:31 PFSH Acute 2 PFSH: Medical History No pertinent past medical history neg dx- htn, dm, thyroid, dvt/pe PCP: Chyna vail Contraceptive management Surgical History H/O dilation and curettage (~2006) SAB Family History Mother Heart disease Hypertension Family history of thyroid problem Ovarian cancer Grandmother Heart disease Paternal grandmother Ovarian cancer Maternal grandmother Grandfather Diabetes Paternal grandfather Denies family history of Colon cancer Breast cancer Uterine cancer Social History Smoking and tobacco/nicotine status: current every day tobacco/nicotine user (1 PPD) Vitals/I&O/Wt Last Vital Signs Temp 98.3 F 10/20/23 03:51 Pulse 60 10/20/23 03:51 Resp 15 10/20/23 03:51 BP 106/73 10/20/23 03:51 Pulse Ox 99 10/20/23 03:51 O2 Del Method Room Air 10/20/23 03:51 O2 Flow Rate 2 10/19/23 20:00 10/19/23 10/20/23 10/20/23 22:59 06:59 14:59 Intake Total 1240 / 1240 0 / 1240 Balance 1240 / 1240 0 / 1240 Weight last 48 hrs Weight 162 lb Weight 162 lb Weight 162 lb Physical Exam 2 Narrative: General : Patient is well developed , no acute distress, oriented x3 Head : Normal cephalic, a-traumatic. Ears : Pinnae and external canal are normal. Hearing is normal. Eyes : PERRLA, Sclera and injection are normal. No conjunctival discharge. Nose : Mucous membranes are without erythema. Throat : buccal mucosa is normal, gums are without significant recession or hypertrophy. Lungs : Equal chest rise bilaterally, no use of accessory muscles, trachea is midline. Cor : Rate and rhythm are normal. Abdomen : Soft, ND, tender to palpation right upper quadrant, positive Fierro sign, no g/r/m Extremities : No edema, no cyanosis or clubbing, dorsalis pedis pulses are present bilaterally, non-tender to palpation of calves. Upper extremities are normal bilaterally. Back : non-tender to palpation, no CVA tenderness. Neuro : CN II - XII intact, Upper and lower extremities have equal and full strength Data 10/20/23 05:27 10/20/23 05:27 A&P Assessment and plan (1) Intractable abdominal pain: (2) Symptomatic cholelithiasis: Plan Admit to [facility] under myself See orders Schedule tomorrow for laparoscopic cholecystectomy The risks and benefits of the procedure, including but not limited to, bleeding, infection, scar, numbness, pain, damage to surrounding structures, damage to common bile duct requiring additional surgery, conversion to an open procedure, were explained to the patient. He is understanding of the risks and wishes to proceed. Attestations 2 Medical Necessity Statement*: Patient quires at least 1 night in the hospital for antibiotics in preparation for laparoscopic cholecystectomy in the morning Coding Level of Care Code 54190 Diagnoses Intractable abdominal pain R10.9 Symptomatic cholelithiasis K80.20
[2023-10-19] MEDS: HYDROmorphone 1 mg/mL INJ 1 mL IVP (23:35)
[2023-10-20] VITALS (17 sets, daily range): BP systolic 101–134; BP diastolic 57–99; PULSE 45–68; RESP 15–20; TEMP 36.2–37.1; O2SAT 94–100; BMI 29.6
[2023-10-20 05:46] LABS: Basophils % 0.2 %; Eosinophils % 0.5 %; Hematocrit 39.3 % (36-47); Lymphocytes # 1.7 10^3/uL (0.8-4.8); Lymphocytes % 27.7 %; Mean Corpuscular HGB Conc 32.8 g/dL (30-55); Mean Corpuscular Hemoglobin 30.9 pg (27-33); Mean Platelet Volume 9.1 fL (7.4-10.4); Monocytes # 0.8 10^3/uL (0.2-0.9); Monocytes % 13.8 %; Neutrophils # 3.43 10^3/uL (1.8-7.7); Neutrophils % 57.6 %; Nucleated Red Blood Cells % 0 %; Platelet Count 219 10^3/cmm (157-399); Red Blood Count 4.18 10^6/uL (3.85-5.65); Red Cell Distribution Width 13.1 % (12.1-15.1); White Blood Count 5.95 10^3/uL (3.29-11.43)
[2023-10-20 05:58] LABS: Partial Thromboplastin Time 28.6 SECONDS (23.9-36.7)
[2023-10-20 06:06] LABS: Blood Urea Nitrogen 7 mg/dL (6-20); Carbon Dioxide 26 mmol/L (22-29); Chloride 104 mmol/L (98-107); Glucose 91 mg/dL (65-115); Osmolality Calculated 284 mOsm/kg (285-295); Sodium 138 mmol/L (136-145)
--- NOTE | 2023-10-20 07:09 | P.PN_ITS ---
Vitals/I&O/Wt Last Vital Signs Temp 98.3 F 10/20/23 03:51 Pulse 60 10/20/23 03:51 Resp 15 10/20/23 03:51 BP 106/73 10/20/23 03:51 Pulse Ox 99 10/20/23 03:51 O2 Del Method Room Air 10/20/23 03:51 O2 Flow Rate 2 10/19/23 20:00 10/19/23 10/20/23 10/20/23 22:59 06:59 14:59 Intake Total 1240 / 1240 0 / 1240 Balance 1240 / 1240 0 / 1240 Weight last 48 hrs Weight 162 lb Weight 162 lb Weight 162 lb Data 10/20/23 05:27 10/20/23 05:27 A&P Assessment and plan (1) Intractable abdominal pain: (2) Symptomatic cholelithiasis: Plan Schedule tomorrow for laparoscopic cholecystectomy The risks and benefits of the procedure, including but not limited to, bleeding, infection, scar, numbness, pain, damage to surrounding structures, damage to common bile duct requiring additional surgery, conversion to an open procedure, were explained to the patient. He is understanding of the risks and wishes to proceed. Attestations 2 Medical Necessity Statement*: She may be discharged home after surgery or stay 1 night for recovery depending on intraoperative findings during laparoscopic cholecystectomy Coding Level of Care Code Acute Code for Chg Fwd Diagnoses Intractable abdominal pain R10.9 Symptomatic cholelithiasis K80.20
[2023-10-20] MEDS: sodium chloride 0.9% 1,000 ML 30 ML IV (07:58)
--- NOTE | 2023-10-20 08:01 | P.ANESASSM_ITS ---
Pre-Anesthetic Assessment Height/Weight: Height 1.57 m Weight 73.482 kg Temp Pulse Resp BP Pulse Ox O2 Del Method O2 Flow Rate 98.1 F 68 18 134/79 100 Room Air 2 10/20/23 07:52 10/20/23 07:52 10/20/23 07:52 10/20/23 07:52 10/20/23 07:52 10/20/23 07:52 10/19/23 20:00 Operation Date: 10/20/23 13:50 Proposed Procedures p Laparoscopic Cholecystectomy(Not Applicable) - Vamsi Hansen DO Familial anesthetic complications: None Was Beta Jesus taken within 24 hours: N/A Was Clonidine taken within 24 hours: N/A Last intake: Intake Last Liquid Date 10/29/23 Last Solid Date 10/19/23 Social Tobacco and No alcohol Exam alert, oriented x 3, clear to auscultation bilaterally and regular rate & rhythm Airway Mallampati: Class I Dentition: chipped (back molar) GI Gastroesophageal Reflux Disease Anesthetic Plan ASA status: 2 Anesthesia: General Risk of > 500 ml blood loss (7ml/kg in children): No Medications/Allergies Home Medications Medication Instructions Recorded Confirmed Last Taken Type levonorgestrel 21 mcg/24 hours (8 See Rx Instructions .Route .COMPLEX 03/16/20 10/19/23 Unknown History yrs) 52 mg intrauterine device (Mirena) alprazolam 0.5 mg tablet (Xanax) 0.5 mg PO BID PRN Anxiety 06/22/21 10/19/23 Unknown History propranolol 10 mg tablet 10 mg PO BID PRN Anxiety 06/27/22 10/19/23 10/18/23 History hydrocodone 5 mg-acetaminophen 325 1 tab PO Q6H PRN pain #14 tabs 09/15/23 10/19/23 10/19/23 Rx mg tablet pantoprazole 40 mg tablet,delayed 40 mg PO DAILY #60 tabs 09/15/23 10/19/23 10/18/23 Rx release (Protonix) trazodone 100 mg tablet 100 mg PO BEDTIME PRN Sleep 09/15/23 10/19/23 Unknown History ondansetron HCl 4 mg tablet 4 mg PO Q8H PRN Nausea And Vomiting 10/19/23 10/19/23 10/19/23 History Allergies Allergy/AdvReac Type Severity Reaction Status Date / Time azithromycin [From Zithromax] Allergy Mild unknown Verified 10/19/23 11:31 Current Medications Generic Name Dose Route Start Last Admin Trade Name Freq PRN Reason Stop Dose Admin Hydromorphone HCl 1 mg 10/19/23 22:22 10/19/23 23:35 Hydromorphone 1 Mg/Ml Inj 1 Ml IVP 1 mg Q4H PRN Administration Pain Lactated Ringer's 1,000 mls @ 100 mls/hr 10/19/23 11:45 10/19/23 22:31 Lactated Ringers IV 100 mls/hr .Q10H PRINCESS Administration Sodium Chloride 1,000 mls @ 30 mls/hr 10/20/23 08:00 10/20/23 07:58 Sodium Chloride 0.9% IV 10/21/23 07:59 30 mls/hr .Q24H PRINCESS Administration Morphine Sulfate 4 mg 10/19/23 11:34 10/19/23 15:27 Morphine 4 Mg/Ml Sdv 1 Ml IVP 4 mg Q4H PRN Administration SEVERE PAIN PFSH Anesthesia Medical History No pertinent past medical history neg dx- htn, dm, thyroid, dvt/pe PCP: Chyna vail Contraceptive management Surgical History H/O dilation and curettage (~2006) SAB Family History Mother Heart disease Hypertension Family history of thyroid problem Ovarian cancer Grandmother Heart disease Paternal grandmother Ovarian cancer Maternal grandmother Grandfather Diabetes Paternal grandfather Denies family history of Colon cancer Breast cancer Uterine cancer Social History Smoking and tobacco/nicotine status: current every day tobacco/nicotine user (1 PPD) Data Anesthesia 10/20/23 05:27 10/20/23 05:27 Short CBC 10/19/23 10/20/23 Range/Units 10:50 05:27 WBC 11.05 5.95 (3.29-11.43) 10^3/uL Hgb 14.30 12.90 (11.27-16.99) g/dL Hct 43.3 39.3 (36-47) % MCV 92.3 94.0 (85-98) fl Plt Count 288 219 (157-399) 10^3/cmm Neut % (Auto) 81.1 57.6 % Neut # (Auto) 8.97 H 3.43 (1.8-7.7) 10^3/uL BMP 10/19/23 10/20/23 10:50 05:27 Sodium 137 138 Potassium 4.7 4.0 Chloride 102 104 Carbon Dioxide 23 26 BUN 13 7 Creatinine 0.8 0.8 Glucose 112 91 Calcium 10.1 9.0 Liver Function 10/19/23 Range/Units 10:50 Total Bilirubin 0.2 (0.15-1.2) mg/dL AST 10 (0-32) U/L ALT 9 (0-33) U/L Alkaline Phosphatase 65 (35-105) U/L Albumin 4.5 (3.5-5.2) g/dL Urine 10/19/23 Range/Units 10:58 Urine Color Yellow (Yellow) Urine Appearance Clear (CLEAR) Urine pH 5 (5-7) Ur Specific [place] 1.030 (1.005-1.030) Urine Protein Neg (Negative) Urine Glucose (UA) Norm (Normal) Urine Ketones 1+ H (Negative) Urine Nitrate Negative (Negative) Urine Bilirubin Neg (Negative) Ur Leukocyte Esterase Negative (Negative) Coags 10/20/23 05:27 APTT 28.6 Cardiac Studies: 2 Holter Monitor 11/30/20
[2023-10-20] MEDS: ceFAZolin 2,000 MG in sodium chloride 0.9% (plus) 50 ML 100 MG IV (09:09)
[2023-10-20] MEDS: lidocaine-epi 2% 20 mL INJ INJECTION (09:39)
--- NOTE | 2023-10-20 10:01 | P.OP_ITS ---
Operative Report Date of procedure: October 20, 2023 Surgeon: Vamsi Hansen DO Brief History: This a very pleasant 3-year-old female who presented to hospital with intractable abdominal pain cholelithiasis. She was scheduled to have an outpatient cholecystectomy but could not handle the pain any longer. Laparoscopic cholecystectomy is indicated. The risk and benefits were explained and documented. Procedure: Preoperative diagnosis: Symptomatic cholelithiasis, intractable abdominal pain Postoperative diagnosis: Symptomatic cholelithiasis, hydropic gallbladder Procedure performed: Laparoscopic cholecystectomy Surgeon: Dr. Vamsi Hansen DO Estimated blood loss: 5 mL Specimens: Gallbladder to pathology Complications: None apparent Description of procedure: Patient was wheeled into the operative room and placed on the OR table in a supine position. Abdomen was inspected prepped and draped in usual sterile fashion. Time-out was performed and all present were in agreement. A 15 blade scalp was used to make a stab incision in the left upper quadrant and intra- abdominal insufflation was achieved using a Veress needle. After localizing the tissue incisions were made and a 5 millimeter trocar was placed into the umbilicus as well as 2 in the right upper quadrant. A 12 millimeter trocar was placed in the epigastrium. Gallbladder was grasped and elevated. The triangle of Calot was carefully dissected using blunt dissection and electrocautery until the triangle of Calot clearly identified. The cystic duct was clipped proximally and double clipped distally. The duct was then ligated proximally. The cystic artery was doubly clipped and ligated. The gallbladder was then removed from the liver bed using electrocautery. The gallbladder was hydropic. The gallbladder was removed from the abdomen using an Endo-Catch bag through the epigastric incision. The liver bed was inspected and no bleeding was seen. The abdomen was irrigated and suctioned. All ports removed. Skin was washed and dried. Incisions were closed with 4-0 Monocryl in a subcuticular interrupted fashion. Skin glue was applied. Patient tolerated the procedure well.
[2023-10-20] MEDS: ondansetron 2 mg/ML SDV 2 mL 4 MG IVP ×2 (10:26→10:36)
--- NOTE | 2023-10-20 10:50 | ANE.PACU2 ---
Inpatient post-anesthesia follow up: Airway intact: Yes Vital signs: Temperature 98.4 F Pulse Rate 48 Respiratory Rate 16 Blood Pressure 126/76 Pulse Oximetry 96 Oxygen Delivery Me thod Room Air Oxygen Flow Rate 6 Fraction of Inspir ed Oxygen Hydration adequate: Yes Nausea and vomiting: No Pain level: 1 Mental status: Baseline
[2023-10-20] MEDS: piperacillin-tazobactam 3.375 GM in sodium chloride 0.9% (plus) 50 ML IV (11:44)
--- NOTE | 2023-10-20 15:10 | PM.DCS ---
Discharge Providers Date of Admission: 10/19/23 11:34 Date of Discharge: October 20, 2023 Attending Provider at Admission: Vamsi Hansen DO Attending Provider at Discharge: Vamsi Hansen DO Primary Care Provider: Reena Mcgee DO Diagnoses at Discharge Discharge Diagnosis (1) Intractable abdominal pain: Status: Acute (2) Symptomatic cholelithiasis: Status: Acute Reason for Visit Reason for Visit: abd pain Hospital Course Hospital Course This is a very pleasant 43-year-old female who presented to the hospital with intractable abdominal pain and known symptomatic cholelithiasis. She underwent laparoscopic cholecystectomy and was discharged home the same day in good condition Physical Exam Narrative: General : Patient is well developed , no acute distress, oriented x3 Head : Normal cephalic, a-traumatic. Ears : Pinnae and external canal are normal. Hearing is normal. Eyes : PERRLA, Sclera and injection are normal. No conjunctival discharge. Nose : Mucous membranes are without erythema. Throat : buccal mucosa is normal, gums are without significant recession or hypertrophy. Lungs : Equal chest rise bilaterally, no use of accessory muscles, trachea is midline. Cor : Rate and rhythm are normal. Abdomen : Soft, ND, appropriately tender, no g/r/m Extremities : No edema, no cyanosis or clubbing, dorsalis pedis pulses are present bilaterally, non-tender to palpation of calves. Upper extremities are normal bilaterally. Back : non-tender to palpation, no CVA tenderness. Neuro : CN II - XII intact, Upper and lower extremities have equal and full strength Discharge Data Studies Completed and Pending Pending at discharge Category Date Time Status Pathology: Surgical [PTH] Routine Pth 10/20/23 10:03 Received Laboratory Results WBC 5.95 10^3/uL (3.29-11.43) 10/20/23 05:27 RBC 4.18 10^6/uL (3.85-5.65) 10/20/23 05:27 Hgb 12.90 g/dL (11.27-16.99) 10/20/23 05:27 Hct 39.3 % (36-47) 10/20/23 05:27 MCV 94.0 fl (85-98) 10/20/23 05:27 MCH 30.9 pg (27-33) 10/20/23 05:27 MCHC 32.8 g/dL (30-55) 10/20/23 05:27 RDW 13.1 % (12.1-15.1) 10/20/23 05:27 Plt Count 219 10^3/cmm (157-399) 10/20/23 05:27 MPV 9.1 fL (7.4-10.4) 10/20/23 05:27 Neut % (Auto) 57.6 % 10/20/23 05:27 Lymph % (Auto) 27.7 % 10/20/23 05:27 Coal % (Auto) 13.8 % 10/20/23 05:27 Eos % (Auto) 0.5 % 10/20/23 05:27 Baso % (Auto) 0.2 % 10/20/23 05:27 Neut # (Auto) 3.43 10^3/uL (1.8-7.7) 10/20/23 05:27 Lymph # (Auto) 1.7 10^3/uL (0.8-4.8) 10/20/23 05:27 Coal # (Auto) 0.8 10^3/uL (0.2-0.9) 10/20/23 05:27 Eos # (Auto) 0.0 10^3/uL (0.0-0.8) 10/20/23 05:27 Baso # (Auto) 0.0 10^3/uL (0.0-0.1) 10/20/23 05:27 Nucleated RBC % (auto) 0 % 10/20/23 05:27 Nucleated RBCs # 0.0 /100WBC 10/20/23 05:27 APTT 28.6 SECONDS (23.9-36.7) 10/20/23 05:27 Sodium 138 mmol/L (136-145) 10/20/23 05:27 Potassium 4.0 mmol/L (3.5-5.1) 10/20/23 05:27 Chloride 104 mmol/L (98-107) 10/20/23 05:27 Carbon Dioxide 26 mmol/L (22-29) 10/20/23 05:27 Anion Gap 12.0 (5-19) 10/20/23 05:27 BUN 7 mg/dL (6-20) 10/20/23 05:27 Creatinine 0.8 mg/dL (0.5-0.9) 10/20/23 05:27 GFR Calculation 79.0 mL/min (90-130) L 10/20/23 05:27 Glucose 91 mg/dL (65-115) 10/20/23 05:27 Calculated Osmolality 284 mOsm/kg (285-295) L 10/20/23 05:27 Calcium 9.0 mg/dL (8.5-10.5) 10/20/23 05:27 Total Bilirubin 0.2 mg/dL (0.15-1.2) 10/19/23 10:50 AST 10 U/L (0-32) 10/19/23 10:50 ALT 9 U/L (0-33) 10/19/23 10:50 Alkaline Phosphatase 65 U/L (35-105) 10/19/23 10:50 Total Protein 7.1 g/dL (6.6-8.7) 10/19/23 10:50 Albumin 4.5 g/dL (3.5-5.2) 10/19/23 10:50 Globulin 2.6 g/dL (1.3-4.6) 10/19/23 10:50 Lipase 27 U/L (13-60) 10/19/23 10:50 HCG, Qual Negative (Negative) 10/19/23 10:50 Urine Color Yellow (Yellow) 10/19/23 10:58 Urine Appearance Clear (CLEAR) 10/19/23 10:58 Urine pH 5 (5-7) 10/19/23 10:58 Ur Specific [place] 1.030 (1.005-1.030) 10/19/23 10:58 Urine Protein Neg (Negative) 10/19/23 10:58 Urine Glucose (UA) Norm (Normal) 10/19/23 10:58 Urine Ketones 1+ (Negative) H 10/19/23 10:58 Urine Blood Neg (Negative) 10/19/23 10:58 Urine Nitrate Negative (Negative) 10/19/23 10:58 Urine Bilirubin Neg (Negative) 10/19/23 10:58 Urine Urobilinogen Norm mg/dL (Negative) 10/19/23 10:58 Ur Leukocyte Esterase Negative (Negative) 10/19/23 10:58 Procedures Performed Laparoscopic cholecystectomy Vitals Last Vital Signs Temp 98.1 F 10/20/23 13:00 Pulse 52 L 10/20/23 13:00 Resp 18 10/20/23 13:00 BP 104/73 10/20/23 13:00 Pulse Ox 96 10/20/23 13:00 O2 Del Method Room Air 10/20/23 13:00 O2 Flow Rate 6 10/20/23 10:20 Discharge Plan Discharge Patient Disposition: Home Condition: Stable Prescriptions: New hydrocodone-acetaminophen 10-325 mg tablet 1 tab PO Q6H PRN (Reason: pain) Qty: 20 0RF amoxicillin-pot clavulanate 875-125 mg tablet 1 tab PO BID Qty: 14 0RF fluconazole 150 mg tablet 150 mg PO ONCE Qty: 1 0RF Continued alprazolam [Xanax] 0.5 mg tablet 0.5 mg PO BID PRN (Reason: Anxiety) propranolol 10 mg tablet 10 mg PO BID PRN (Reason: Anxiety) Mirena 20 mcg/24 hours (5 yrs) 52 mg intrauterine device See Rx Instructions .ROUTE .COMPLEX Rx Instructions: intrauterinely ondansetron HCl 4 mg tablet 4 mg PO Q8H PRN (Reason: Nausea And Vomiting) trazodone 100 mg tablet 100 mg PO BEDTIME PRN (Reason: Sleep) pantoprazole [Protonix] 40 mg tablet,delayed release (DR/EC) 40 mg PO DAILY Qty: 60 0RF Held hydrocodone-acetaminophen 5-325 mg tablet 1 tab PO Q6H PRN (Reason: pain) Qty: 14 0RF Hold Instructions: Resume on 10/25/23. Discharge Orders: Discharge Order (Routine); Ordered 10/20/23 Ordered By: Vamsi Hansen Referrals: Reena Mcgee DO [Primary Care Provider] - Vamsi Hansen DO [Physician] - 2 weeks Discharge Diet: Advance as tolerated Discharge Activity: Resume usual activity Patient Instructions: Opioid Safety, Post Anesthesia Care Activity Restrictions/Additional Instructions: Do not soak incisions underwater for 2 weeks. Shower daily. Discharge Attestations Time Spent in Discharge Care*: less than 30 min Quality Metrics Clinical Quality Measures [ No reported AMI, CVA or VTE this stay] Coding Level of Care Code Acute Code for Chg Fwd Diagnoses Intractable abdominal pain R10.9 Symptomatic cholelithiasis K80.20
== END 2023-10-20 16:04 | disposition home or self-care (01) ==
LOC: ER 12:34 → MEDSURG 10-20 07:07
PROVIDERS: Family Medicine; Admitting Provider Surgery; Emergency Provider Internal Medicine; PCP Family Medicine; Visit Provider Surgery
PROC: 0FT44ZZ Resection of Gallbladder, Percutaneous Endoscopic Approach (ICD-10-PCS; CPT 47562; principal; 2023-10-20 13:40)
DX: K80.10 Calculus of gallbladder with chronic cholecystitis without obstruction (principal); K21.9 Gastro-esophageal reflux disease without esophagitis; F17.200 Nicotine dependence, unspecified, uncomplicated
CPT/HCPCS: 47562; 36415; 80048; 80053; 81003; 83690; 84703; 85025; 85730; 88304; 96361; 96374; 96375; 96376; 99285; G0378; J0131; J0690; J1100; J1170; J2270; J2405; J2543; J2704; J2710; J3010; J3490; J7030; J7120

== ENCOUNTER 2023-12-30 17:44 | Emergency (ER) | payer OTHER, SELFPAY ==
[2023-12-30] VITALS (9 sets, daily range): BP systolic 118–145; BP diastolic 56–84; PULSE 47–61; RESP 15–18; TEMP 36.8; O2SAT 95–99; BMI 27.4
--- NOTE | 2023-12-30 17:52 | XRR_ITS ---
PROCEDURE INFORMATION: Exam: XR Chest Exam date and time: 12/30/2023 6:07 PM Age: 43 years old Clinical indication: Shortness of breath; Additional info: Cp TECHNIQUE: Imaging protocol: Radiologic exam of the chest. Views: 1 view. COMPARISON: CR XR chest 1V portable [id number] 09/15/2023 11:05 AM FINDINGS: Lungs: Unremarkable. No consolidation. Pleural spaces: Unremarkable. No pleural effusion. No pneumothorax. Heart/Mediastinum: Unremarkable. No cardiomegaly. Bones/joints: Unremarkable. XR/XR chest 1V portable [id number] IMPRESSION: No acute findings.
--- NOTE | 2023-12-30 18:06 | ECG_ITS ---
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 Measurements Intervals [place] Rate: 58 P: 69 NH: 168 QRS: 76 QRSD: 97 T: 71 QT: 435 QTc: 431 Interpretive Statements SINUS BRADYCARDIA WITH OCCASIONAL VENTRICULAR PREMATURE COMPLEXES Compared to ECG 09/15/2023 14:07:07 Ventricular premature complex(es) now present Sinus rhythm no longer present Sinus arrhythmia no longer present Electronically Signed On 12-31-2023 23:47:58 CDT by Jono Howard M.D. [id number]
--- NOTE | 2023-12-30 18:07 | CTR_ITS ---
PROCEDURE INFORMATION: Exam: CTA Chest With Contrast Exam date and time: 12/30/2023 6:28 PM Age: 43 years old Clinical indication: Abdominal pain; Epigastric; Other: Chest pain; Prior surgery; Surgery date: 6+ months; Surgery type: Isa; Additional info: Cp, abd pain TECHNIQUE: Imaging protocol: Computed tomographic angiography of the chest with contrast. Exam focused on the arteries. 3D rendering (Not supervised by radiologist): MIP and/or 3D reconstructed images were created by the technologist. Radiation optimization: All CT scans at this facility use at least one of these dose optimization techniques: automated exposure control; mA and/or kV adjustment per patient size (includes targeted exams where dose is matched to clinical indication); or iterative reconstruction. Contrast material: OMNI 350; Contrast volume: 100 ml; Contrast route: INTRAVENOUS (IV); COMPARISON: CR (CHEST, ) 12/30/2023 6:07 PM RADIATION DOSE METRICS: Total DLP (mGy-cm): 897.98 FINDINGS: Pulmonary arteries: No pulmonary embolus. Aorta: Unremarkable. No aortic aneurysm. No aortic dissection. Lungs: No focal consolidation. Pleural spaces: Unremarkable. No pneumothorax. No pleural effusion. Heart: Unremarkable. No cardiomegaly. No pericardial effusion. Lymph nodes: Unremarkable. No enlarged lymph nodes. Bones/joints: Unremarkable. No acute fracture. Soft tissues: Unremarkable. PROCEDURE INFORMATION: Exam: CT Abdomen And Pelvis With Contrast Exam date and time: 12/30/2023 6:28 PM Age: 43 years old Clinical indication: Abdominal pain; Epigastric; Other: Chest pain; Prior surgery; Surgery date: 6+ months; Surgery type: Isa; Additional info: Cp, abd pain TECHNIQUE: Imaging protocol: Computed tomography of the abdomen and pelvis with contrast. Radiation optimization: All CT scans at this facility use at least one of these dose optimization techniques: automated exposure control; mA and/or kV adjustment per patient size (includes targeted exams where dose is matched to clinical indication); or iterative reconstruction. Contrast material: OMNI 350; Contrast volume: 100 ml; Contrast route: INTRAVENOUS (IV); COMPARISON: US gall bladder [id number] 10/06/2023 3:50 PM RADIATION DOSE METRICS: Total DLP (mGy-cm): 897.97 FINDINGS: Liver: Normal. No mass. Gallbladder and bile ducts: The gallbladder is absent. Pancreas: Normal. No ductal dilation. Spleen: Normal. No splenomegaly. Adrenal glands: Normal. No mass. Kidneys and ureters: Normal. No hydronephrosis. Stomach and bowel: Unremarkable. No obstruction. No mucosal thickening. Appendix: No evidence of appendicitis. Intraperitoneal space: Unremarkable. No free air. No significant fluid collection. Vasculature: Unremarkable. No abdominal aortic aneurysm. Lymph nodes: Unremarkable. No enlarged lymph nodes. Urinary bladder: Unremarkable as visualized. Reproductive: Unremarkable as visualized. Bones/joints: Unremarkable. No acute fracture. Soft tissues: Unremarkable. CT/CT angio chest w abd pel w con IMPRESSION: 1. No pulmonary embolus. 2. No focal consolidation. IMPRESSION: 1. No bowel obstruction or inflammatory process associated with the bowel. 2. No free air or significant free fluid in the abdomen or pelvis. 3. No evidence of appendicitis.
--- NOTE | 2023-12-30 18:15 | PC.NURSE ---
Pt on bedside library monitor
--- NOTE | 2023-12-30 18:19 | ED_ITS ---
HPI - Abdominal Pain 2 General: Chief Complaint: Abdominal Pain Stated Complaint: sob, chest pain, back pain, abd pain Time Seen by Provider: 12/30/23 17:57 Source: patient Mode of arrival: ambulatory Limitations: no limitations History of Present Illness: 43-year-old female states been having ab dominal pain along with chest pain shortness of breath for the last week. She is seen at [facility] on Friday had a workup for chest pain and they thought it was likely gastric started on a PPI. States she went to see her PCP Friday and states she had a full-blown panic attack there with chest pain shortness of breath states they started her on propranolol which she had started yesterday. States today she has been having some diffuse abdominal cramping denies any chest pain today. States the pain is mainly epigastric in nature she had no vomiting no diarrhea denies any fevers. Associated Symptoms: Denies chills, diarrhea, dysuria, fever(s), nausea and vomiting Review of Systems 2 Const: Denies: fever(s) or chills ENMT: Denies: throat pain or dental pain Card: Reports: chest pain Resp: Reports: dyspnea GI: Reports: abdominal pain; Denies: nausea, vomiting or diarrhea : Denies: dysuria Musc: Denies: neck pain or back pain Skin/Breast: Denies: rash Neuro: Denies: headache(s) PFSH ED 2 PFSH: Medical History No pertinent past medical history neg dx- htn, dm, thyroid, dvt/pe PCP: Chyna vail Contraceptive management Surgical History (Updated 11/18/23 @ 08:28 by Vamsi Hansen DO) History of laparoscopic cholecystectomy H/O dilation and curettage (~2006) SAB Family History Mother Heart disease Hypertension Family history of thyroid problem Ovarian cancer Grandmother Heart disease Paternal grandmother Ovarian cancer Maternal grandmother Grandfather Diabetes Paternal grandfather Denies family history of Colon cancer Breast cancer Uterine cancer Social History Smoking and tobacco/nicotine status: current every day tobacco/nicotine user (1 PPD) Physical Exam 2 Const: COMMON NORMALS: no acute distress, patient oriented x3 and healthy appearing HENMT: COMMON NORMALS: normocephalic and atraumatic HEAD & SCALP: n ormocephalic and atraumatic Eye: COMMON NORMALS: conjunctivae normal CONJUNCTIVA: Yes conjunctivae normal Neck/C-Spine: COMMON NORMALS: full ROM and supple Chest: COMMONS NORMALS: normal inspection of the chest and normal palpation of entire chest wall Resp: COMMON NORMALS: normal respiratory effort, No retractions, No use of accessory muscles and clear to auscultation bilaterally AUSCULTATION: clear to auscultation bilaterally Cardio: COMMON NORMALS: regular rate, regular rhythm and No murmurs present (Cardio) RATE: regular rate RHYTHM: regular rhythm GI: COMMON NORMALS: Normal to inspection, nondistended, normoactive bowel sounds present, Soft to palpation, non-tender and no masses PALPATION: Yes Soft to palpation Extremity: COMMON NORMALS: normal to inspection and full ROM Neuro: COMMON NORMALS: patient oriented x3, moves all extremities and no focal motor deficits Psych: COMMON NORMALS: mental status grossly normal, Normal thought process present and cooperative THOUGHT PROCESS: Normal thought process present Skin: COMMON NORMALS: no rashes or lesions noted and no wounds GENERAL SKIN EXAM: no rashes or lesions noted Course 2 Vital Signs: Vital signs: Vital Signs Temperature 98.2 F 12/30/23 17:52 Pulse Rate 47 L 12/30/23 21:00 Respiratory Rate 15 12/30/23 18:47 Blood Pressure 132/65 12/30/23 21:00 Pulse Oximetry 96 12/30/23 21:00 Oxygen Delivery Me thod Room Air 12/30/23 21:00 MDM - Abdominal Pain Medical Decision Making Patient presents with abdominal pain she was found to have elevated liver enzymes along with bilirubin hepatitis panel here is negative she has some slight dilatation of her biliary duct on ultrasound it was 8 mm. Concerned about possible stricture her CT was otherwise normal did speak to chito glasgow will transfer there for higher level of care for GI capabilities Medical Records I reviewed the patient's medical records. Lab Data I reviewed the patient's lab results. 12/30/23 18:08 12/30/23 18:08 Labs/Radiology: Radiology Impressions Chest X-Ray 12/30/23 17:52 IMPRESSION: No acute findings. Chest/Abdomen/Pelvis CT 12/30/23 18:07 IMPRESSION: 1. No pulmonary embolus. 2. No focal consolidation. IMPRESSION: 1. No bowel obstruction or inflammatory process associated with the bowel. 2. No free air or significant free fluid in the abdomen or pelvis. 3. No evidence of appendicitis. Abdomen Ultrasound 12/30/23 19:23 IMPRESSION: 1. No hepatic lesions. 2. No intrahepatic or extrahepatic biliary ductal dilatation. 3. The gallbladder is absent. 4. No ascites. 5. No hydronephrosis or renal calculus. Laboratory Results WBC 12.34 10^3/uL (3.29-11.43) H 12/30/23 18:08 RBC 4.94 10^6/uL (3.85-5.65) 12/30/23 18:08 Hgb 15.10 g/dL (11.27-16.99) 12/30/23 18:08 Hct 45.2 % (36-47) 12/30/23 18:08 MCV 91.5 fl (85-98) 12/30/23 18:08 MCH 30.6 pg (27-33) 12/30/23 18:08 MCHC 33.4 g/dL (30-55) 12/30/23 18:08 RDW 13.2 % (12.1-15.1) 12/30/23 18:08 Plt Count 354 10^3/cmm (157-399) 12/30/23 18:08 MPV 8.8 fL (7.4-10.4) 12/30/23 18:08 Neut % (Auto) 77.0 % 12/30/23 18:08 Lymph % (Auto) 14.6 % 12/30/23 18:08 Lane % (Auto) 6.6 % 12/30/23 18:08 Eos % (Auto) 1.1 % 12/30/23 18:08 Baso % (Auto) 0.4 % 12/30/23 18:08 Neut # (Auto) 9.51 10^3/uL (1.8-7.7) H 12/30/23 18:08 Lymph # (Auto) 1.8 10^3/uL (0.8-4.8) 12/30/23 18:08 Lane # (Auto) 0.8 10^3/uL (0.2-0.9) 12/30/23 18:08 Eos # (Auto) 0.1 10^3/uL (0.0-0.8) 12/30/23 18:08 Baso # (Auto) 0.1 10^3/uL (0.0-0.1) 12/30/23 18:08 Nucleated RBC % (auto) 0 % 12/30/23 18:08 Nucleated RBCs # 0.0 /100WBC 12/30/23 18:08 Sodium 141 mmol/L (136-145) 12/30/23 18:08 Potassium 4.2 mmol/L (3.5-5.1) 12/30/23 18:08 Chloride 107 mmol/L (98-107) 12/30/23 18:08 Carbon Dioxide 22 mmol/L (22-29) 12/30/23 18:08 Anion Gap 16.2 (5-19) 12/30/23 18:08 BUN 13 mg/dL (6-20) 12/30/23 18:08 Creatinine 0.8 mg/dL (0.5-0.9) 12/30/23 18:08 GFR Calculation 79.0 mL/min (90-130) L 12/30/23 18:08 Glucose 95 mg/dL (65-115) 12/30/23 18:08 Calculated Osmolality 292 mOsm/kg (285-295) 12/30/23 18:08 Calcium 9.9 mg/dL (8.5-10.5) 12/30/23 18:08 Total Bilirubin 1.8 mg/dL (0.15-1.2) H 12/30/23 18:08 AST 980 U/L (0-32) H 12/30/23 18:08 ALT 879 U/L (0-33) H 12/30/23 18:08 Alkaline Phosphatase 220 U/L (35-105) H 12/30/23 18:08 Troponin T Baseline < 6 ng/L (0-10) 12/30/23 18:08 Troponin T 120 Minute 6.00 ng/L (0-10) 12/30/23 19:55 Delta Troponin T 0.10433 ABS# (0-10) 12/30/23 19:55 Total Protein 6.8 g/dL (6.6-8.7) 12/30/23 18:08 Albumin 4.6 g/dL (3.5-5.2) 12/30/23 18:08 Globulin 2.2 g/dL (1.3-4.6) 12/30/23 18:08 Lipase 36 U/L (13-60) 12/30/23 18:08 HCG, Qual Negative (Negative) 12/30/23 19:15 Urine Color Carl[place] (Yellow) 12/30/23 19:15 Urine Appearance Hazy (CLEAR) A 12/30/23 19:15 Urine pH 5 (5-7) 12/30/23 19:15 Ur Specific [place] 1.010 (1.005-1.030) 12/30/23 19:15 Urine Protein 1+ (Negative) H 12/30/23 19:15 Urine Glucose (UA) Norm (Normal) 12/30/23 19:15 Urine Ketones 1+ (Negative) H 12/30/23 19:15 Urine Blood 2+ (Negative) H 12/30/23 19:15 Urine Nitrate Negative (Negative) 12/30/23 19:15 Urine Bilirubin 1+ (Negative) H 12/30/23 19:15 Urine Urobilinogen 8 mg/dL (Negative) H 12/30/23 19:15 Ur Leukocyte Esterase Negative (Negative) 12/30/23 19:15 Urine RBC 0-4 /hpf (0-2) H 12/30/23 19:15 Urine WBC 0-4 /hpf (0-5) H 12/30/23 19:15 Ur Squamous Epith Cells 0-4 /hpf (0-5) H 12/30/23 19:15 Amorphous Sediment Not Reportable 12/30/23 19:15 Urine Bacteria Trace /hpf (NONE) 12/30/23 19:15 Urine Mucus Trace /hpf 12/30/23 19:15 Hepatitis A IgM Ab Non-reactive (Nonreactive) 12/30/23 18:08 Hep Bs Antigen Non-reactive (Nonreactive) 12/30/23 18:08 Hep B Core Total Ab Non-reactive (Nonreactive) 12/30/23 18:08 Hepatitis C Antibody Non-reactive (Nonreactive) 12/30/23 18:08 All radiology interpretation(s) finalized by discharge EKG Data EKG 1: I personally reviewed and interpreted this EKG as follows: EKG interpretation date: 12/30/23 EKG interpretation time: 18:06 Interpretation: sinus aniyah hr [address] or t wave abnormalities qrs 97 qtc 433 Discharge Plan Discharge Patient Disposition: Xfer Short-Term Hosp Clinical Impression: Abdominal pain, Elevated liver enzymes Condition: Stable Prescriptions: No Action alprazolam [Xanax] 0.5 mg tablet 0.5 mg PO BID PRN (Reason: Anxiety) propranolol 10 mg tablet 10 mg PO BID PRN (Reason: Anxiety) Mirena 20 mcg/24 hours (5 yrs) 52 mg intrauterine device See Rx Instructions .ROUTE .COMPLEX Rx Instructions: intrauterinely ondansetron HCl 4 mg tablet 4 mg PO Q8H PRN (Reason: Nausea And Vomiting) hydrocodone-acetaminophen 10-325 mg tablet 1 tab PO Q6H PRN (Reason: pain) Qty: 20 0RF amoxicillin-pot clavulanate 875-125 mg tablet 1 tab PO BID Qty: 14 0RF fluconazole 150 mg tablet 150 mg PO ONCE Qty: 1 0RF trazodone 100 mg tablet 100 mg PO BEDTIME PRN (Reason: Sleep) hydrocodone-acetaminophen 5-325 mg tablet 1 tab PO Q6H PRN (Reason: pain) Qty: 14 0RF Hold Instructions: Resume on 10/25/23. pantoprazole [Protonix] 40 mg tablet,delayed release (DR/EC) 40 mg PO DAILY Qty: 60 0RF Referrals: Reena Vail DO [Primary Care Provider] - Patient Instructions: Abdominal Pain (ED) Coding Level of Care Code ED Paint Striping Machine Operator for Kody Griffith
[2023-12-30 18:26] LABS: Basophils # 0.1 10^3/uL (0.0-0.1); Basophils % 0.4 %; Eosinophils # 0.1 10^3/uL (0.0-0.8); Eosinophils % 1.1 %; Hematocrit 45.2 % (36-47); Lymphocytes # 1.8 10^3/uL (0.8-4.8); Lymphocytes % 14.6 %; Mean Corpuscular HGB Conc 33.4 g/dL (30-55); Mean Corpuscular Hemoglobin 30.6 pg (27-33); Mean Corpuscular Volume 91.5 fl (85-98); Mean Platelet Volume 8.8 fL (7.4-10.4); Monocytes # 0.8 10^3/uL (0.2-0.9); Monocytes % 6.6 %; Neutrophils # 9.51 10^3/uL (1.8-7.7); Nucleated Red Blood Cells % 0 %; Platelet Count 354 10^3/cmm (157-399); Red Blood Count 4.94 10^6/uL (3.85-5.65); Red Cell Distribution Width 13.2 % (12.1-15.1); White Blood Count 12.34 10^3/uL (3.29-11.43)
[2023-12-30] MEDS: iohexol 350 mg/mL 500 mL Btl (per mL) IV (18:35)
[2023-12-30 18:37] LABS: Troponin(5th) Baseline < 6 ng/L (0-10)
[2023-12-30 18:38] LABS: Albumin Level 4.6 g/dL (3.5-5.2); Alkaline Phosphatase 220 U/L (35-105); Anion Gap 16.2 (5-19); Blood Urea Nitrogen 13 mg/dL (6-20); Calcium 9.9 mg/dL (8.5-10.5); Carbon Dioxide 22 mmol/L (22-29); Chloride 107 mmol/L (98-107); Creatinine Clr Calc Pharmacy 83.6761; Globulin 2.2 g/dL (1.3-4.6); Glucose 95 mg/dL (65-115); Lipase 36 U/L (13-60); Osmolality Calculated 292 mOsm/kg (285-295); Potassium 4.2 mmol/L (3.5-5.1); Sodium 141 mmol/L (136-145); Total Bilirubin 1.8 mg/dL (0.15-1.2); Total Protein 6.8 g/dL (6.6-8.7)
[2023-12-30 18:50] LABS: Alanine Aminotransferase 879 U/L (0-33); Aspartate Amino Transferase 980 U/L (0-32)
--- NOTE | 2023-12-30 19:23 | USR_ITS ---
PROCEDURE INFORMATION: Exam: US Abdomen Complete Exam date and time: 12/30/2023 7:59 PM Age: 43 years old Clinical indication: Abdominal pain; Epigastric; Prior surgery; Surgery date: 1-6 months; Surgery type: [place] October 2023; Additional info: Upper abd pain elevated liver enzymes TECHNIQUE: Imaging protocol: Real-time ultrasound of the abdomen with image documentation. Complete exam. COMPARISON: US gall bladder [id number] 10/06/2023 3:50 PM FINDINGS: Liver: Normal. No mass. Gallbladder: Gallbladder is absent. Biliary ducts: Normal. No stones. No dilation. Pancreas: The visualized pancreas is unremarkable. Right kidney: Right kidney measures up to 9.9 cm in length with no hydronephrosis or renal calculus. Left kidney: Left kidney measures up to 9.7 cm in length with no hydronephrosis or renal calculus. Spleen: Normal. No splenomegaly. Aorta: See Inferior vena cava finding. Inferior vena cava: The visualized aorta and IVC are unremarkable. Portal venous: The main portal vein is upper limits of normal in diameter. US/US abdomen complete* [id number] IMPRESSION: 1. No hepatic lesions. 2. No intrahepatic or extrahepatic biliary ductal dilatation. 3. The gallbladder is absent. 4. No ascites. 5. No hydronephrosis or renal calculus.
[2023-12-30 19:51] LABS: Urine Appearance Hazy (CLEAR); Urine Color Amber (Yellow)
[2023-12-30 19:52] LABS: Add Urine Microscopic? YES; Bilirubin Urine 1+ (Negative); Blood Urine 2+ (Negative); Glucose Urine UA Norm (Normal); Ketones Urine 1+ (Negative); Leukocyte Esterase Urine Negative (Negative); Nitrate Urine Negative (Negative); Protein Urine 1+ (Negative); Urobilinogen Urine 8 mg/dL (Negative); pH Urine 5 (5-7)
[2023-12-30 20:01] LABS: Bacteria Urine TRACE /hpf; Mucus Urine TRACE /hpf; RBC Urine 0-4 /hpf (0-2); Squamous Epithelial Cell Urine 0-4 /hpf (0-5); WBC Urine 0-4 /hpf (0-5)
[2023-12-30 20:02] LABS: Add Urine Culture? No
[2023-12-30 20:15] LABS: Troponin 5 2HR Delta 0.00001 ABS# (0-10)
[2023-12-30 20:19] LABS: HCG Qualitative Urine. Negative (Negative)
--- NOTE | 2023-12-30 20:39 | ECG_ITS ---
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 Measurements Intervals [place] Rate: 46 P: 52 WI: 137 QRS: 59 QRSD: 94 T: 57 QT: 460 QTc: 402 Interpretive Statements SINUS BRADYCARDIA SEPTAL MYOCARDIAL INFARCTION , OF INDETERMINATE AGE [40+ ms Q WAVE IN V1/V2] Compared to ECG 12/30/2023 18:06:32 Myocardial infarct finding now present Ventricular premature complex(es) no longer present Electronically Signed On 01-01-2024 0:01:47 CDT by Jono Howard M.D. [id number]
[2023-12-30 21:19] LABS: Hepatitis A Antibody IgM Non-Reactive (Nonreactive); Hepatitis B Core AB, Total Non-Reactive (Nonreactive); Hepatitis B Surface Antigen Non-Reactive (Nonreactive); Hepatitis C Virus Antibody Non-Reactive (Nonreactive)
[2023-12-30] MEDS: morphine 4 mg/mL SDV 1 mL IM (22:08)
[2023-12-30] MEDS: ondansetron 2 mg/ML SDV 2 mL 4 MG IM (22:08)
[2023-12-31 08:38] LABS: Hepatitis B Surface AB < 3.5 (11.5-1000)
== END 2023-12-30 22:19 | disposition short-term general hospital (02) ==
PROVIDERS: Emergency Provider Emergency Medicine; PCP Family Medicine
DX: R10.13 Epigastric pain (principal); R74.8 Abnormal levels of other serum enzymes; F17.210 Nicotine dependence, cigarettes, uncomplicated
CPT/HCPCS: 36415; 71045; 71275; 74177; 76700; 80053; 81001; 81025; 83690; 84484; 85025; 86705; 86706; 86709; 86803; 87340; 93005; 96372; 99285; J2270; J2405; Q9967

== ENCOUNTER → 2024-07-05 11:00 | Outpatient (BNVA) | payer OTHER, MEDICAID, SELFPAY | PROVIDERS: PCP Family Medicine; Visit Provider Nurse Practitioner Women's Health | DX: R87.619 Unspecified abnormal cytological findings in specimens from cervix uteri (principal) | CPT/HCPCS: 87624 ==

== ENCOUNTER 2024-08-12 16:01 | Outpatient (CLI) | payer OTHER, SELFPAY ==
--- NOTE | 2024-08-12 16:00 | MM_ITS ---
WS: [id number] BILATERAL SCREENING DIGITAL TOMOSYNTHESIS MAMMOGRAM WITH CAD HISTORY: Z12.39 - Encounter for other screening for malignant neop... COMPARISON: 07/08/2022 Bilateral CC and MLO views with tomosynthesis and synthetic mammography submitted. Computer aided det ection analyzed. Breast composition: There are scattered areas of fibroglandular density. No suspicious masses, microc alcifications or architectural distortion. Scattered calcifications in each breast. Asymmetries in th e upper outer quadrant of each breast are stable. MM/MM scr BI tomosynthesis [id number] IMPRESSION: BI-RADS: 2 - Benign. FOLLOW UP: 1 Year Follow-up
== END 2024-08-12 16:02 | disposition home or self-care (01) ==
LOC: MOBLMAM 16:04
PROVIDERS: PCP Nurse Practitioner Women's Health; Visit Provider Nurse Practitioner Women's Health
DX: Z12.31 Encounter for screening mammogram for malignant neoplasm of breast (principal); R92.323 Mammographic fibroglandular density, bilateral breasts; R92.1 Mammographic calcification found on diagnostic imaging of breast; N64.89 Other specified disorders of breast
CPT/HCPCS: 77063; 77067

== ENCOUNTER → 2024-09-08 10:03 | Outpatient (BNVA) | payer OTHER, SELFPAY | PROVIDERS: PCP Nurse Practitioner Women's Health; Visit Provider Obstetrics & Gynecology | DX: R87.612 Low grade squamous intraepithelial lesion on cytologic smear of cervix (LGSIL) (principal) | CPT/HCPCS: 81025; 88305; 88342 ==

== ENCOUNTER → 2025-07-07 14:52 | Outpatient (BNVA) | payer OTHER, SELFPAY | PROVIDERS: PCP Family Medicine; Visit Provider Nurse Practitioner Women's Health | DX: Z12.4 Encounter for screening for malignant neoplasm of cervix (principal) | CPT/HCPCS: 87624 ==

== ENCOUNTER 2025-08-19 14:14 | Outpatient (CLI) | payer OTHER, SELFPAY ==
--- NOTE | 2025-08-19 14:20 | MM_ITS ---
WS: [id number] BILATERAL 3D TOMOSYNTHESIS DIGITAL SCREENING MAMMOGRAPHY WITH CAD CLINICAL INFORMATION: Z12.39 - Encounter for other screening for malignant neop... HISTORY: Screening mammogram. No current complaints. COMPARISON: 2023 TECHNIQUE: Bilateral CC and MLO views. FINDINGS: Scattered fibroglandular densities bilaterally. No suspicious focal mass, asymmetry, calcifications, or architectural distortion. No evidence of malignancy. MM/MM scr BI tomosynthesis [id number] IMPRESSION: DENSITY: There are scattered areas of fibroglandular density. BI-RADS: 1 - Negative. FOLLOW UP: 1 Year Follow-up Recommend return to annual screening mammography.
== END 2025-08-19 14:15 | disposition home or self-care (01) ==
LOC: RAD 14:15
PROVIDERS: PCP Family Medicine; Visit Provider Nurse Practitioner Women's Health
DX: Z12.31 Encounter for screening mammogram for malignant neoplasm of breast (principal); R92.323 Mammographic fibroglandular density, bilateral breasts
CPT/HCPCS: 77063; 77067